=== PATIENT | male | born 1980 | race Caucasian/White ===

== ENCOUNTER 2019-08-28 23:53 | Observation (INO) ==
[2019-08-29 00:17] LABS: Basophils # 0.2 K/mm3 (0-0.2); Basophils % 1.3 % (0.1-2.0); Eosinophils # 0.5 K/mm3 (0.0-0.4); Eosinophils % 4.6 % (0.1-12.0); Hematocrit 49.3 % (42.0-52.0); Hemoglobin 16.7 g/dL (14.1-18.0); Lymphocytes # 3.3 K/mm3 (0.7-4.5); Lymphocytes % 29.3 % (10-50); Mean Corpuscular HGB Conc 33.8 g/dL (31.8-35.4); Mean Corpuscular Volume 92.9 fl (80-94); Mean Platelet Volume 7.3 fl (7.4-10.4); Monocytes # 0.7 K/mm3 (0.1-1.0); Monocytes % 6.6 % (1.7-9.3); Neutrophils # 6.6 K/mm3 (1.8-7.8); Neutrophils % 58.2 % (37.0-80.0); Platelet Count 261 K/mm3 (142-424); Red Blood Count 5.31 M/mm3 (4.60-6.20); Red Cell Distribution Width 12.6 % (11.5-17.5); White Blood Count 11.4 K/mm3 (4.8-10.8)
[2019-08-29 00:20] LABS: Appearance,Urine CLEAR (Clear); Bilirubin,Urine Negative (Negative); Blood, Urine Negative (Negative); Color,Urine YELLOW (Yellow); Glucose,Urine (UA) Negative (Negative); Ketones,Urine Negative (Negative); Leukocyte Esterase,Urine Negative (Negative); Microscopic, Urine URINE MICROSCOPIC (MICROSCOPIC); Protein,Urine Negative (Negative); Specific Gravity, Urine 1.025 (1.005-1.030); Urobilinogen,Urine 0.2 EU/dl (0.2)
--- NOTE | 2019-08-29 00:28 | Emergency Department Note ---
ED Disposition Clinical Impression: Obesity (BMI 30.0-34.9), Tobacco use Chest pain Qualifiers: Chest pain type: precordial pain Qualified Code(s): R07.2 - Precordial pain HTN (hypertension) Qualifiers: Hypertension type: essential hypertension Qualified Code(s): I10 - Essential (primary) hypertension GERD (gastroesophageal reflux disease) Qualifiers: Esophagitis presence: esophagitis presence not specified Qualified Code(s): K21.9 - Gastro-esophageal reflux disease without esophagitis Disposition: Admitted as Observation Condition on Discharge: Good Referrals: Provider,Referral, [Referring] - - Critical Care Critical Care Time: No Attestation: On 08/28/19, the high probability of a clinically significant, sudden or life threatening deterioration of the following system(s) required my full and direct attention, intervention and personal management. The time I documented below is in addition to time spent performing reported procedures but includes the fo llowing listed in this critical care notation. Medical Decision Making - Medical Records Medical records reviewed: Yes: I reviewed the patient's medical records. - [place] Inquiry Pt receiving controlled substance: No Vital Signs: 08/28/19 23:53 Temperature 99.2 F Temperature Source Oral Pulse Rate [Left Radial] 104 H Respiratory Rate 18 Blood Pressure [Left Arm] 179/110 H Blood Pressure Mean [Left Arm] 133 02 Sat by Pulse Oximetry 96 Oxygen Delivery Method Room Air - Lab Data Lab results reviewed: Yes: I reviewed the patient's lab results. Lab Results 08/29/19 00:00: WBC 11.4 H, RBC 5.31, Hgb 16.7, Hct 49.3, MCV 92.9, MCH 31.4 H, MCHC 33.8, RDW 12.6, Plt Count 261, MPV 7.3 L, Neut % (Auto) 58.2, Lymph % (Auto) 29.3, [place] % (Auto) 6.6, Eos % (Auto) 4.6, Baso % (Auto) 1.3, Neut # (Auto) 6.6, Lymph # (Auto) 3.3, [place] # (Auto) 0.7, Eos # (Auto) 0.5 H, Baso # (Auto) 0.2, ESR 2 08/29/19 00:00: Sodium 137, Potassium 3.9, Chloride 101, Carbon Dioxide 28, Anion Gap 11.9, BUN 17, Creatinine 1.26, Estimated Creat Clear 129, Estimated GFR 63, Est GFR ( Amer) 76, Glucose 86, Calcium 8.6, Total Bilirubin 0.2, AST 19, ALT 26, Alkaline Phosphatase 73, Troponin I < 0.02, C-Reactive Protein < 0.2, Total Protein 7.2, Albumin 3.7, Globulin 3.5 H, Albumin/Globulin Ratio 1.1 08/29/19 00:10: Urine Color Yellow, Urine Appearance Clear, Urine pH 6.0, Ur Specific [place] 1.025, Urine Protein Negative, Urine Glucose (UA) Negative, Urine Ketones Negative, Urine Blood Negative, Urine Nitrate Negative, Urine Bilirubin Negative, Urine Urobilinogen 0.2, Ur Leukocyte Esterase Negative, Urine WBC Occasional, Urine Bacteria Trace Result diagrams: 08/29/19 00:00 08/29/19 00:00 Orders (Tests/Meds): ED MEDICATIONS Discontinued Medications Generic Name Dose Route Start Last Admin Trade Name Freq PRN Reason Stop Dose Admin Aspirin 324 mg 08/29/19 00:02 08/29/19 00:04 Aspirin 81mg Chewable Tablet PO 08/29/19 00:03 324 mg ONCE ONE Administration Nitroglycerin 1 gm 08/29/19 00:51 08/29/19 00:55 Nitroglycerin 1 Inch Oint Udp TD 08/29/19 00:52 1 gm ONCE ONE Administration ORDERS Category Date Time Status Chest XR 2 view (NOT portable) [XR chest 2V] Stat Exams 08/29/19 00:17 Taken Troponin I Q3H Lab 08/29/19 03:15 Ordered Troponin I Q3H Lab 08/29/19 06:15 Ordered - Radiology Data #1 Image(s): Chest Image Reviewed: Yes I reviewed the patient's radiology image Preliminary Findings: Normal/NAD - ECG Data Tracing #1 Normal Sinus Rhythm: Yes Ischemic changes: non-specific ST-T wave changes - Physician Consults Physician Consulted: [email or web address] Reason -: Admission Chest Pain HPI - General Chief Complaint: Chest Pain Stated Complaint: chest pain Time Seen by Provider: 08/29/19 00:00 Mode of Arrival: Ambulatory Source of Information: Patient, Spouse, Medical Record Limitations: No Limitations Description of Symptoms (Recalled from ER Triage Doc. by RN): chest heaviness and pressure that started 2-3 days ago while he was at work. patient states that tonight the pain suddenly got worse - History of Present Illness HPI narrative: pt over the last 3 days with progressive chest pain and worse tonight at rest - pt reports pain as someone standing on chest - pt with multiple risk factors including fh and tob use and uncontrolled htn - no pcp MD complaint: chest pain indicative of cardiac Onset (ago): day(s) Duration: intermittent Activity at onset: during rest Pain location: left chest Severity: moderate Quality: heaviness Associated symptoms: nausea Risk Factors for CAD: Hypertension, Family Hx of CAD, Smoking Treatments prior to or on arrival for Cardiac Chest Pain: none - KEN Score for Non-Stemi Age of Patient: 40-49 years old Heart Rate: 90-109 bpm Systolic Blood Pressure: 160-199 mmHg Serum Creatinine: 1.20-1.59 mg/dl CHF [place] Class: I-No CHF Other Risk Factors: None Non-Stemi Risk Score: 60 - Related Data Home Medications Medication Instructions Recorded Confirmed No Known Home Medications 08/28/19 08/28/19 Allergies Allergy/AdvReac Type Severity Reaction Status Date / Time Penicillins Allergy Verified 08/28/19 23:59 [facility] History - Hepatitis A Screen Drug use history?: No High risk sexual behaviors?: No History of sexually transmitted infection?: No Currently employed?: No Childcare worker?: No Do you have indoor plumbing?: Yes Do you have electricity?: Yes Attestation statement:: This patient has been screened for Hepatitis A risk factors. I have reviewed the patient's past medical history: Yes - Social History Smoking Status: Current every day smoker Tobacco Type: cigarettes # Packs/Day (cigarettes): 2 Alcohol Intake: current Alcohol Intake Frequency:: holidays/special occasions only Occupational Status: employed ROS Obtained: Yes All systems reviewed & no additional complaints - Constitutional Constitutional: Denies fever(s) - Eyes Eyes: Denies change in vision - ENT Ears, Nose, Mouth, and Throat: Denies sore throat - Cardiovascular Cardiovascular: Reports as per HPI, Reports chest pain, Denies dyspnea - Respiratory Respiratory: No cough - Gastrointestinal Gastrointestingal: Reports: nausea, other (hx of gerd ). Denies: abdominal pain - Genitourinary Male Genitourinary: Denies hematuria - Musculoskeletal Musculoskeletal: Denies joint pain, Denies joint swelling - Integumentary/Breasts Skin/Breast: Denies rash - Neurologic Neurologic: Denies headache(s), Denies seizure-like activity Physical Exam - General General appearance: alert, obese - Head Head exam: normocephalic - Eye Eye exam: Present: PERRL, EOMI. Absent: scleral icterus - ENT ENT exam: Present: mucous membranes moist - Neck Neck exam: Present: trachea midline - Respiratory Respiratory exam: Present: normal lung sounds bilaterally. Absent: respiratory distress - Cardiovascular Cardiovascular exam: Present: regular rate, systolic murmur. Absent: rubs - Abdominal Exam Abdominal exam: Present: soft. Absent: tenderness - Extremities Exam Extremities exam: Present: full ROM - Neurological Exam Neurological exam: Present: alert, oriented X3, CN II-XII intact - Psychiatric Psychiatric exam: Present: normal affect - Skin Skin exam: Absent: rash
[2019-08-29 00:30] LABS: Bacteria,Urine Trace /lpf; WBC,Urine Occasional #/hpf (0-3)
[2019-08-29 00:36] LABS: Alanine Aminotransferase 26 U/L (12-78); Albumin Level 3.7 gm/dL (3.4-5.0); Albumin/Globulin Ratio 1.1 (1.1-1.8); Alkaline Phosphatase 73 U/L (46-116); Anion Gap 11.9 mEq/L (5-15); Aspartate Amino Transferase 19 U/L (15-37); Bilirubin,Total 0.2 mg/dL (0.2-1.0); Blood Urea Nitrogen 17 mg/dL (7-18); Calcium 8.6 mg/dL (8.5-10.1); Carbon Dioxide 28 mmol/L (21.0-32.0); Chloride 101 mmol/L (98-107); Globulin 3.5 gm/dl (1.3-3.2); Glucose 86 mg/dL (74-106); Sodium 137 mmol/L (136-145); Total Protein,Serum 7.2 gm/dL (6.4-8.2)
[2019-08-29 00:37] LABS: C-Reactive Protein < 0.2 mg/dL (0.0-0.9)
[2019-08-29 00:58] LABS: Erythrocyte Sedimentation Rate 2 mm/hr (0-15)
[2019-08-29 07:15] LABS: Basophils # 0.1 K/mm3 (0-0.2); Basophils % 1.3 % (0.1-2.0); Eosinophils # 0.5 K/mm3 (0.0-0.4); Hematocrit 47.2 % (42.0-52.0); Hemoglobin 15.3 g/dL (14.1-18.0); Lymphocytes % 32.3 % (10-50); Mean Corpuscular HGB Conc 32.4 g/dL (31.8-35.4); Mean Corpuscular Volume 95.8 fl (80-94); Mean Platelet Volume 7.5 fl (7.4-10.4); Monocytes # 0.7 K/mm3 (0.1-1.0); Monocytes % 7.6 % (1.7-9.3); Neutrophils # 4.9 K/mm3 (1.8-7.8); Neutrophils % 53.8 % (37.0-80.0); Platelet Count 236 K/mm3 (142-424); Red Blood Count 4.93 M/mm3 (4.60-6.20); Red Cell Distribution Width 12.8 % (11.5-17.5); White Blood Count 9.2 K/mm3 (4.8-10.8)
--- NOTE | 2019-08-29 07:40 | Pharmacy Consult Notes ---
[facility] Pharmacy VTE Monitoring - Patient Demographics Admission date: 08/29/19 Report Date: 08/29/19 Time: 07:40 Allergies/Adverse Reactions: Patient Allergies Penicillins Allergy (Verified 08/28/19 23:59) Height: 1.85 m Weight: 115.269 kg Patient Problems: Current Active Problems Chest pain (Acute) HTN (hypertension) (Acute) Obesity (BMI 30.0-34.9) (Acute) Tobacco use (Acute) GERD (gastroesophageal reflux disease) (Acute) - VTE Risk Labs: VTE Related Lab Results Hgb 15.3 g/dL (14.1-18.0) 08/29/19 06:13 Hct 47.2 % (42.0-52.0) 08/29/19 06:13 Plt Count 236 K/mm3 (142-424) 08/29/19 06:13 BUN 17 mg/dL (7-18) 08/29/19 00:00 Creatinine 1.26 mg/dL (0.70-1.30) 08/29/19 00:00 Estimated Creat Clear 129 mL/min (50-200) 08/29/19 00:00 Was VTE Risk Assessment Performed: Yes VTE Score: 6 VTE Risk Level: Moderate Risk Clinical Trial Participant: No - Prophylaxis VTE Prophylaxis Ordered?: Yes Types of VTE Prophylaxis: TEDS Knee High
[2019-08-29 08:06] LABS: Anion Gap 13.6 mEq/L (5-15); Calcium 8.1 mg/dL (8.5-10.1); Chol/HDL Ratio 3.4 (1-3.5)
--- NOTE | 2019-08-29 08:11 | Consult Report ---
History of Present Illness Consult date: 08/29/19 Requesting physician: Etienne Patino Consult reason: chest pain Chief complaint: chest pain Additional Medical History:: 1. History of palpitations for which he was previously on beta-kvng therapy, discontinued many years ago 2. Tobacco use, 1.5 packs/day for 7 years 3. Alcohol use, up to 15 beers per day 4. Chest pain with elevated blood pressure, 08/2019, normal troponins, EKG and echo History of present illness: 39-year-old white male with history of palpitations that had previously been treated with beta-kvng therapy was admitted for left-sided chest and abdominal discomfort that has been progressive over the last several days. He does relate some GI upset earlier this week including diarrhea and vomiting. He frequently takes [id number] Prilosec for GI upset. Patient has not seen a doctor in probably 10 years and discontinued his Toprol medication for his palpitations many years ago. He jokingly admits that he self medicates with beer and [id number] Prilosec when he feels bad. Patient's blood pressure on admission yesterday was 170/110 mmHg. He does relate a headache since the nitroglycerin paste was placed. Patient is a smoker but denies history of diabetes or hypertension. No history of early heart disease in his immediate family. Preliminary echocardiogram shows preserved ejection fraction with no significant valvular heart disease. 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 ankles) Amputation: No - *Social History Educational Level: Attended College Smoking Status: Current every day smoker Tobacco Type: cigarettes, smokeless tobacco # Packs/Day (cigarettes): 1 Alcohol Intake: current Alcohol Intake Frequency:: holidays/special occasions only *Occupational Status:: employed Housing: house Household Members: none *Travel in the last 8 weeks: Inside the [facility] Family Hx:: Cancer, Heart Attack Meds Home Medications Medication Instructions Recorded Confirmed Type No Known Home Medications 08/28/19 08/28/19 History Allergies Allergy/AdvReac Type Severity Reaction Status Date / Time Penicillins Allergy Verified 08/28/19 23:59 Review of Systems - Review of Systems Review of systems:: pertinent systems reviewed and negative unless documented below - *Cardiovascular Reports chest pain - *Respiratory Reports shortness of breath - *Gastrointestinal Reports abdominal pain, Reports loose stools, Reports nausea, Reports vomiting - *Genitourinary Denies blood in urine - *Musculoskeletal Denies joint pain, Denies back pain - *Neurologic Denies headache(s), Denies seizure-like activity Exam Vital signs and Labs for Last 24 Hours: Temp Pulse Resp BP Pulse Ox 97.8 F 80 18 129/82 95 08/29/19 03:58 08/29/19 04:00 08/29/19 03:58 08/29/19 03:58 08/29/19 03:58 Laboratory Results - last 24 hr 08/29/19 00:00: WBC 11.4 H, RBC 5.31, Hgb 16.7, Hct 49.3, MCV 92.9, MCH 31.4 H, MCHC 33.8, RDW 12.6, Plt Count 261, MPV 7.3 L, Neut % (Auto) 58.2, Lymph % (Auto) 29.3, [place] % (Auto) 6.6, Eos % (Auto) 4.6, Baso % (Auto) 1.3, Neut # (Au to) 6.6, Lymph # (Auto) 3.3, [place] # (Auto) 0.7, Eos # (Auto) 0.5 H, Baso # (Auto) 0.2, ESR 2 08/29/19 00:00: Sodium 137, Potassium 3.9, Chloride 101, Carbon Dioxide 28, Anion Gap 11.9, BUN 17, Creatinine 1.26, Estimated Creat Clear 129, Estimated GFR 63, Est GFR ( Amer) 76, Glucose 86, Calcium 8.6, Total Bilirubin 0.2, AST 19, ALT 26, Alkaline Phosphatase 73, Troponin I < 0.02, C-Reactive Protein < 0.2, Total Protein 7.2, Albumin 3.7, Globulin 3.5 H, Albumin/Globulin Ratio 1.1 08/29/19 00:10: Urine Color Yellow, Urine Appearance Clear, Urine pH 6.0, Ur Specific [place] 1.025, Urine Protein Negative, Urine Glucose (UA) Negative, Urine Ketones Negative, Urine Blood Negative, Urine Nitrate Negative, Urine Bilirubin Negative, Urine Urobilinogen 0.2, Ur Leukocyte Esterase Negative, Urine WBC Occasional, Urine Bacteria Trace 08/29/19 03:15: Troponin I < 0.02 08/29/19 06:13: Troponin I < 0.02 08/29/19 06:13: WBC 9.2, RBC 4.93, Hgb 15.3, Hct 47.2, MCV 95.8 H, MCH 31.1, MCHC 32.4, RDW 12.8, Plt Count 236, MPV 7.5, Neut % (Auto) 53.8, Lymph % (Auto) 32.3, [place] % (Auto) 7.6, Eos % (Auto) 5.0, Baso % (Auto) 1.3, Neut # (Auto) 4.9, Lymph # (Auto) 3.0, [place] # (Auto) 0.7, Eos # (Auto) 0.5 H, Baso # (Auto) 0.1 I & O for Last 24 hours: Intake & Output 08/26/19 08/27/19 08/28/19 08/29/19 11:59 11:59 11:59 11:59 Intake Total 128 / 128 Balance 128 / 128 Weight 254 lb 2 oz - *Routine HEENT Exam Head: Present: normocephalic Eye: Present: EOMI, PERRL ENT: Present: mucous membranes moist - *Routine Neck Exam Present: supple. Absent: JVD, carotid bruit - *Routine Respiratory Exam Present: CTA bilaterally. Absent: accessory muscle use, rales, rhonchi, wheezes - *Routine Cardiovascular Exam Present: RRR. Absent: murmur, gallop, rubs - *Routine Abdominal Exam Present: soft, tenderness. Absent: distended, guarding - *Routine Extremities Exam Absent: edema, calf tenderness - *Routine Neurological Exam Present: alert, oriented X3, moving all extremities Assessment and Plan (1) Chest pain Current visit: Yes Status: Acute Qualifiers: Chest pain type: precordial pain Qualified Code(s): R07.2 - Precordial pain Category: Medical Code(s): R07.9 - Chest pain, unspecified (2) GERD (gastroesophageal reflux disease) Current visit: Yes Status: Acute Qualifiers: Esophagitis presence: esophagitis presence not specified Qualified Code(s): K21.9 - Gastro-esophageal reflux disease without esophagitis Category: Medical Code(s): K21.9 - Gastro-esophageal reflux disease without esophagitis (3) HTN (hypertension) Current visit: Yes Status: Acute Qualifiers: Hypertension type: essential hypertension Qualified Code(s): I10 - Essential (primary) hypertension Category: Medical Code(s): I10 - Essential (primary) hypertension (4) Obesity (BMI 30.0-34.9) Current visit: Yes Status: Acute Category: Medical Code(s): E66.9 - Obesity, unspecified (5) Tobacco use Current visit: Yes Status: Acute Category: Medical Code(s): Z72.0 - Tobacco use (6) Alcohol use Current visit: Yes Status: Acute Category: Social Hx Code(s): Z72.89 - Other problems related to lifestyle - Assessment and plan all Dx Assessment and Plan for all problems:: 1. Atypical chest pain with normal troponins, normal EKG and normal echocardiogram. Patient with markedly elevated blood pressure on admission. Would recommend starting him back on his Toprol XL medication at 50 mg in the evening time with early follow-up next week for consideration of outpatient work-up. Patient can be discharged home from a cardiology standpoint. 2. GI upset, per Dr. Patino 3. Tobacco cessation recommended 4. History of alcohol use, curtailing or cessation recommended
--- NOTE | 2019-08-29 08:26 | H&P/Discharge Summary ---
<Sugar Morejon - Last Filed: 08/29/19 08:20> General - General Admission date:: 08/29/19 Discharge date: 08/29/19 *Admission Date: 08/29/19 *Chief complaint: chest pain, SOA *History of present illness: Mr. Milton is a 39-year-old male with a history of heart palpitations who has been previously treated with a beta-[id number] therapy. He states he stopped the medication years ago due to fatigue. Over the last several days, he has developed midsternal to left-sided chest and abdominal discomfort. He states the pain has radiated up into his neck. He has also had some GI upset earlier this week including diarrhea and vomiting. He states he takes Nexium [id number] for heartburn on a daily basis. He has not seen a doctor in over 10 years and "self medicates" with beer (approximately 10-15 a day) when he feels bad. His blood pressure was elevated on admission yesterday at 170/110. He states he has never had high blood pressure in the past, but he does have a family history of high blood pressure. He has had a headache since the nitroglycerin was placed and it was removed by cardiology today. He does smoke approximately a pack and a half a day but denies any history of diabetes. He was admitted to rule out an TN. His troponins have returned normal as was his EKG and preliminary echo. 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 ankles) Amputation: No - *Social History Educational Level: Attended College Smoking Status: Current every day smoker Tobacco Type: cigarettes, smokeless tobacco # Packs/Day (cigarettes): 1 Alcohol Intake: current Alcohol Intake Frequency:: 3 or more drinks per day *Occupational Status:: employed Housing: house Household Members: none *Travel in the last 8 weeks: Inside the [place] Family Hx:: Cancer, Coronary Artery Disease, Heart Attack Review of Systems - Constitutional Denies body ache(s), Denies chills, Denies weakness - Eyes Denies blurry vision, Denies double vision - ENT Denies nasal congestion, Denies sore throat - *Cardiovascular Reports chest pain, Reports shortness of breath, Denies rapid, pounding, or irregular heartbeat - *Respiratory Reports shortness of breath, Denies cough - *Gastrointestinal Reports abdominal pain (epigastric), Reports loose stools, Reports nausea, Denie s vomiting - *Genitourinary Denies difficulty urinating, Denies painful urination - *Musculoskeletal Denies joint pain, Denies body aches - *Neurologic Reports headache(s), Reports dizziness, Denies seizure-like activity, Denies weakness Exam Vital signs and Labs for Last 24 Hours: Temp Pulse Resp BP Pulse Ox 97.8 F 80 18 129/82 95 08/29/19 03:58 08/29/19 04:00 08/29/19 03:58 08/29/19 03:58 08/29/19 03:58 Laboratory Results - last 24 hr 08/29/19 00:00: WBC 11.4 H, RBC 5.31, Hgb 16.7, Hct 49.3, MCV 92.9, MCH 31.4 H, MCHC 33.8, RDW 12.6, Plt Count 261, MPV 7.3 L, Neut % (Auto) 58.2, Lymph % (Auto) 29.3, [place] % (Auto) 6.6, Eos % (Auto) 4.6, Baso % (Auto) 1.3, Neut # (Auto) 6.6, Lymph # (Auto) 3.3, [place] # (Auto) 0.7, Eos # (Auto) 0.5 H, Baso # (Auto) 0.2, ESR 2 08/29/19 00:00: Sodium 137, Potassium 3.9, Chloride 101, Carbon Dioxide 28, Anion Gap 11.9, BUN 17, Creatinine 1.26, Estimated Creat Clear 129, Estimated GFR 63, Est GFR ( Amer) 76, Glucose 86, Calcium 8.6, Total Bilirubin 0.2, AST 19, ALT 26, Alkaline Phosphatase 73, Troponin I < 0.02, C-Reactive Protein < 0.2, Total Protein 7.2, Albumin 3.7, Globulin 3.5 H, Albumin/Globulin Ratio 1.1 08/29/19 00:10: Urine Color Yellow, Urine Appearance Clear, Urine pH 6.0, Ur Specific [place] 1.025, Urine Protein Negative, Urine Glucose (UA) Negative, Urine Ketones Negative, Urine Blood Negative, Urine Nitrate Negative, Urine Bilirubin Negative, Urine Urobilinogen 0.2, Ur Leukocyte Esterase Negative, Urine WBC Occasional, Urine Bacteria Trace 08/29/19 03:15: Troponin I < 0.02 08/29/19 06:13: Troponin I < 0.02 08/29/19 06:13: WBC 9.2, RBC 4.93, Hgb 15.3, Hct 47.2, MCV 95.8 H, MCH 31.1, MCHC 32.4, RDW 12.8, Plt Count 236, MPV 7.5, Neut % (Auto) 53.8, Lymph % (Auto) 32.3, [place] % (Auto) 7.6, Eos % (Auto) 5.0, Baso % (Auto) 1.3, Neut # (Auto) 4.9, Lymph # (Auto) 3.0, [place] # (Auto) 0.7, Eos # (Auto) 0.5 H, Baso # (Auto) 0.1 08/29/19 06:13: Sodium 138, Potassium 3.6, Chloride 104, Carbon Dioxide 24, Anion Gap 13.6, BUN 15, Creatinine 1.20, Estimated Creat Clear 132, Estimated GFR 67, Est GFR ( Amer) 81, Glucose 86, Calcium 8.1 L, Magnesium 1.9, Triglycerides 118, Cholesterol 162, LDL Cholesterol 90, VLDL Cholesterol 24, HDL Cholesterol 48, Cholesterol/HDL Ratio 3.4 I & O for Last 24 hours: Intake & Output 08/26/19 08/27/19 08/28/19 08/29/19 11:59 11:59 11:59 11:59 Intake Total 128 / 128 Balance 128 / 128 Weight 254 lb 2 oz - Constitutional no acute distress - *Routine HEENT Exam Head: Present: normocephalic Eye: Present: EOMI, PERRL ENT: Present: mucous membranes moist - *Routine Neck Exam Present: supple. Absent: lymphadenopathy - *Routine Respiratory Exam Present: CTA bilaterally - *Routine Cardiovascular Exam Present: RRR - *Routine Abdominal Exam Present: soft, normoactive bowel sounds, tenderness (epigastric) - *Routine Extremities Exam Absent: cyanosis, clubbing, edema - *Routine Skin Exam Present: warm. Absent: rash - *Routine Neurological Exam Present: alert, oriented X3 Hospital Course Hospital Course: The patient's chest x-ray showed nothing acute. His troponins all returned normal as was his EKG and echocardiogram. He did have an elevated blood pressure on admission and cardiology recommended starting him back on his Toprol-XL 50 mg in the evening. They want to follow-up with him in a week for consideration of a stress test. They felt he could be discharged home from a cardiology standpoint. Tobacco cessation as well as curtailing his alcohol intake were both discussed with patient. He will be discharged home on the metoprolol as well as some pantoprazole for his GERD. Results Labs on day of discharge: Labs from last 24 hours 08/29/19 08/29/19 08/29/19 06:13 06:13 06:13 WBC 9.2 RBC 4.93 Hgb 15.3 Hct 47.2 MCV 95.8 H MCH 31.1 MCHC 32.4 RDW 12.8 Plt Count 236 MPV 7.5 Neut % (Auto) 53.8 Lymph % (Auto) 32.3 [place] % (Auto) 7.6 Eos % (Auto) 5.0 Baso % (Auto) 1.3 Neut # (Auto) 4.9 Lymph # (Auto) 3.0 [place] # (Auto) 0.7 Eos # (Auto) 0.5 H Baso # (Auto) 0.1 ESR Sodium 138 Potassium 3.6 Chloride 104 Carbon Dioxide 24 Anion Gap 13.6 BUN 15 Creatinine 1.20 Estimated Creat Clear 132 Estimated GFR 67 Est GFR ( Amer) 81 Glucose 86 Calcium 8.1 L Magnesium 1.9 Total Bilirubin AST ALT Alkaline Phosphatase Troponin I < 0.02 C-Reactive Protein Total Protein Albumin Globulin Albumin/Globulin Ratio Triglycerides 118 Cholesterol 162 LDL Cholesterol 90 VLDL Cholesterol 24 HDL Cholesterol 48 Cholesterol/HDL Ratio 3.4 Urine Color Urine Appearance Urine pH Ur Specific [place] Urine Protein Urine Glucose (UA) Urine Ketones Urine Blood Urine Nitrate Urine Bilirubin Urine Urobilinogen Ur Leukocyte Esterase Urine WBC Urine Bacteria 08/29/19 08/29/19 08/29/19 03:15 00:10 00:00 WBC RBC Hgb Hct MCV MCH MCHC RDW Plt Count MPV Neut % (Auto) Lymph % (Auto) [place] % (Auto) Eos % (Auto) Baso % (Auto) Neut # (Auto) Lymph # (Auto) [place] # (Auto) Eos # (Auto) Baso # (Auto) ESR Sodium 137 Potassium 3.9 Chloride 101 Carbon Dioxide 28 Anion Gap 11.9 BUN 17 Creatinine 1.26 Estimated Creat Clear 129 Estimated GFR 63 Est GFR ( Amer) 76 Glucose 86 Calcium 8.6 Magnesium Total Bilirubin 0.2 AST 19 ALT 26 Alkaline Phosphatase 73 Troponin I < 0.02 < 0.02 C-Reactive Protein < 0.2 Total Protein 7.2 Albumin 3.7 Globulin 3.5 H Albumin/Globulin Ratio 1.1 Triglycerides Cholesterol LDL Cholesterol VLDL Cholesterol HDL Cholesterol Cholesterol/HDL Ratio Urine Color Yellow Urine Appearance Clear Urine pH 6.0 Ur Specific [place] 1.025 Urine Protein Negative Urine Glucose (UA) Negative Urine Ketones Negative Urine Blood Negative Urine Nitrate Negative Urine Bilirubin Negative Urine Urobilinogen 0.2 Ur Leukocyte Esterase Negative Urine WBC Occasional Urine Bacteria Trace 08/29/19 00:00 WBC 11.4 H RBC 5.31 Hgb 16.7 Hct 49.3 MCV 92.9 MCH 31.4 H MCHC 33.8 RDW 12.6 Plt Count 261 MPV 7.3 L Neut % (Auto) 58.2 Lymph % (Auto) 29.3 [place] % (Auto) 6.6 Eos % (Auto) 4.6 Baso % (Auto) 1.3 Neut # (Auto) 6.6 Lymph # (Auto) 3.3 [place] # (Auto) 0.7 Eos # (Auto) 0.5 H Baso # (Auto) 0.2 ESR 2 Sodium Potassium Chloride Carbon Dioxide Anion Gap BUN Creatinine Estimated Creat Clear Estimated GFR Est GFR ( Amer) Glucose Calcium Magnesium Total Bilirubin AST ALT Alkaline Phosphatase Troponin I C-Reactive Protein Total Protein Albumin Globulin Albumin/Globulin Ratio Triglycerides Cholesterol LDL Cholesterol VLDL Cholesterol HDL Cholesterol Cholesterol/HDL Ratio Urine Color Urine Appearance Urine pH Ur Specific [place] Urine Protein Urine Glucose (UA) Urine Ketones Urine Blood Urine Nitrate Urine Bilirubin Urine Urobilinogen Ur Leukocyte Esterase Urine WBC Urine Bacteria - Impressions CXR - nothing acute DS: Diagnosis - Discharge Diagnosis (1) Chest pain Status: Acute (2) GERD (gastroesophageal reflux disease) Status: Acute (3) HTN (hypertension) Status: Acute (4) Obesity (BMI 30.0-34.9) Status: Acute (5) Tobacco use Status: Acute (6) Alcohol use Status: Acute Discharge Plan - Patient Discharge Instructions ACTIVITY: Continue current activity DIET: low salt diet Patient Instructions: Essential Hypertension, DI for Chest Pain - Follow up Plan Follow up with: Etienne Patino MD [Primary Care Provider] - 09/12/19 11:00 am Jona Carrillo PA [Physician Urogynecology Physician] - 09/08/19 1:30 pm Disposition: Home, Self-Retirement Medications: Home Medications Medication Instructions Recorded Confirmed Type Ibuprofen [Ibuprofen 200MG Capsule] 200 mg PO NEEDED PRN 08/29/19 08/29/19 History Metoprolol Succinate [Toprol XL 50 mg PO HS #30 tab 08/29/19 Rx 50mg Tablet] Pantoprazole Sodium [Protonix 40mg 40 mg PO HS 30 Days #30 tab 08/29/19 Rx tablet] Prescriptions/Medication Reconciliation: New Pantoprazole Sodium [Protonix 40mg tablet] 40 mg PO HS 30 Days #30 tab Metoprolol Succinate [Toprol XL 50mg Tablet] 50 mg PO HS #30 tab Continued Ibuprofen [Ibuprofen 200MG Capsule] 200 mg PO NEEDED PRN PRN Reason: pain Discontinued Esomeprazole Magnesium [Nexium] 20 mg PO DAILY - Problem Reconciliation Problems Reviewed?: Yes <Etienne Patino - Last Filed: 08/31/19 08:25> General - General Admission date:: 08/29/19 Exam Vital signs and Labs for Last 24 Hours: Temp Pulse Resp BP Pulse Ox 97.9 F 98 H 20 146/93 H 95 08/29/19 08:00 08/29/19 08:00 08/29/19 08:00 08/29/19 08:00 08/29/19 08:00 I & O for Last 24 hours: Intake & Output 08/28/19 08/29/19 08/30/19 08/31/19 11:59 11:59 11:59 11:59 Intake Total 128 / 128 Balance 128 / 128 Weight 254 lb 2 oz DS: Diagnosis - Discharge Diagnosis (1) Chest pain Status: Acute (2) GERD (gastroesophageal reflux disease) Status: Acute (3) HTN (hypertension) Status: Acute (4) Obesity (BMI 30.0-34.9) Status: Acute (5) Tobacco use Status: Acute (6) Alcohol use Status: Acute Discharge Plan - Problem Reconciliation Problems Reviewed?: Yes - Additional Information Additional Information: Patient seen and examined. Concur with plan for discharge as outlined above.
--- NOTE | 2019-08-29 14:10 | Cardiology Report ---
APPROVED REPORT EXAM: Comprehensive 2D, Doppler, and color-flow Echocardiogram Molded Goods Inspector Trimmer: Emma Pace RVT Ht: 6 ft 1 in Wt: 260lbs BSA: 2.41 BP: 179/110 mmHg Indications: Chest Pain, Hypertension,Smoker 2D Dimensions LVOT 2.24 cm (M/F) 1.5-2.5 M-Mode Dimensions RVDd 1.86 cm (0.9-2.6)LVDd 4.65 cm (3.5-5.7) LVDs 2.75 cm (3.5-5.7)IVSd 1.36 cm (0.6-1.1) PWd 1.43 cm (0.6-1.1)EF (Teich) 71.60% FS 40.90% EDV (Teich) 99.80 mL ESV (Teich) 28.30 mL LV Diastology E/A Ratio 0.71 Mitral Valve MV A Velocity 63.00 (40-130 cm/s) Left Ventricle Left atrium is mildly enlarged, left ventricle is normal size, mild concentric left ventricular hypertrophy, visually estimated ejection fraction 55% with no regional wall motion abnormality, grade 1 diastolic dysfunction seen without tissue Doppler evidence of raise left atrial pressure. Right Ventricle Right atrium right ventricular normal size and contractility. Aortic Valve Aortic valve is minimally thickened and fibrosed. There is no aortic stenosis aortic insufficiency. Mitral Valve Mitral valve is grossly normal, there is mild mitral regurgitation. Tricuspid Valve Tricuspid valve is grossly normal, there is mild tricuspid regurgitation, Pulmonic Valve Pulmonic valve is poorly visualized. Great Vessels Aortic root is normal size. Pericardium No significant pericardial effusion noted. Conclusion 1. Normal left ventricular size, mild concentric left ventricular hypertrophy, visually estimated ejection fraction 55% with no regional wall motion abnormality, grade 1 diastolic dysfunction seen without tissue Doppler evidence of raise left atrial pressure. 2. Mild mitral and tricuspid regurgitation. 3. No significant pericardial effusion noted. Electronically signed by : Raffi Veliz, 08/29/2019 14:10:04
--- NOTE | 2019-08-30 14:21 | Electrocardiograph Report ---
APPROVED REPORT Exam: Resting ECG HR:100 bpm ECG Measurements Heart Rate 100 AXES HI 146 P 49 QRSd 84 QRS 30 QT 366 T40 QTc 472 <Conclusion> Normal sinus rhythm Normal ECG Electronically signed by : Bacilio Pat, 08/30/2019 14:20:28
== END 2019-08-29 10:38 | disposition home or self-care (01) ==
LOC: 2ND 23:53 → ER 23:53 → 2ND 08-29 01:41
PROVIDERS: ADMIT Family Medicine; ATTEND Family Medicine
DX: Z86.14 Personal history of Methicillin resistant Staphylococcus aureus infection; E66.9 Obesity, unspecified; F10.10 Alcohol abuse, uncomplicated; Z68.33 Body mass index [BMI] 33.0-33.9, adult; Z82.49 Family history of ischemic heart disease and other diseases of the circulatory system; I10 Essential (primary) hypertension; Z88.0 Allergy status to penicillin; Z72.0 Tobacco use; R00.2 Palpitations; Z72.89 Other problems related to lifestyle; R07.2 Precordial pain; R06.02 Shortness of breath; K21.9 Gastro-esophageal reflux disease without esophagitis
CPT/HCPCS: 36415; 71020; 71046; 80048; 80053; 80061; 81001; 83735; 84484; 85025; 85651; 86140; 93005; 93306; 99284; G0378

== ENCOUNTER → 2019-10-01 09:15 | Outpatient (CLI) | payer OTHER, SELFPAY ==
--- NOTE | 2019-10-01 09:17 | CA_ITS ---
APPROVED REPORT Exam: Exercise Treadmill Technologist: Corin Sommers, Ht: 6 ft 1 in Wt: 254 lbs BSA: 2.38 m2 HR: 98 bpm BP: 137/88 mmHg Medical History Medical History: HTN, Smoking Medications: Metoprolol,,,,, Pantoprazole,,,,, Allergies: No known drug allergies Cardiac Risk Factors: HTN, Smoking Stress Test Details Test: Fabio HR Resting HR: 100 bpm Max Heart Rate (APMHR): 179 bpm Max HR Achieved: 158 bpm Target HR (85% APMHR): 152 bpm % of APMHR: 88 Recovery HR: 147 bpm BP Resting BP: 137.0/88.0 mmHg Max BP: 188.0/119.0 mmHg Recovery BP: 182.0/100.0 mmHg ECG Clinical Exercise duration: 07:58 min Highest Stage Achieved: Exercise capacity: 10.1 METs Stress ECG Conclusion EXERCISED 7:58 ON FABIO PROTOCOL STOPPING DUE TO LEG CRAMP. MAX HEART RATE 158 BPM WHICH IS 88% OF PM FOR AGE. MAX BP 188/119. METS = 10.1. TEST STOPPED DUE TO LEG CRAMPS. NO CHEST PAIN. OCCASIONAL PVC. T WAVE INVERSION WITH NS ST CHANGES INFERIORLY. PROBABLY WITHIN NORMAL GXT. GXT ONLY(NO IMAGING). Test Summary RECOVERY 07:00 0.0 0.0 112 . 138/ 98 . . REST . . . . . . . Sitting REST 07:24 0.0 0.0 100 . 137/ 88 . . Stage 1 01:00 10.0 1.7 118 . . . . Stage 1 02:00 10.0 1.7 124 . . . . Stage 1 03:00 10.0 1.7 126 . . . . Stage 2 01:00 12.0 2.5 135 . . . . Stage 2 02:00 12.0 2.5 140 . . . . Stage 2 03:00 12.0 2.5 146 . 174/104 . . Stage 3 01:00 14.0 3.4 155 . . . . Stage 3 01:58 14.0 3.4 156 . . . Stop exercise at 07:58 RECOVERY 01:00 0.0 0.0 142 . . . . RECOVERY 02:00 0.0 0.0 120 . 182/100 . . RECOVERY 03:00 0.0 0.0 124 . 182/100 . . RECOVERY 04:00 0.0 0.0 119 . 188/119 . . RECOVERY 05:00 0.0 0.0 113 . 164/ 97 . . RECOVERY 06:00 0.0 0.0 116 . 164/ 97 . . RECOVERY 07:00 0.0 0.0 112 . 138/ 98 . . RECOVERY 08:00 0.0 0.0 112 . 138/ 98 . . RECOVERY 08:11 0.0 0.0 112 . 138/ 98 . . Electronically signed by : Raffi Veliz, 10/02/2019 15:43:46
== END ==
PROVIDERS: PCP Family Medicine; Visit Provider Physician Assistant
DX: R07.9 Chest pain, unspecified (principal); I10 Essential (primary) hypertension
CPT/HCPCS: 93017

== ENCOUNTER 2019-12-01 21:45 | Emergency (ER) | payer OTHER, SELFPAY ==
[2019-12-01 21:45] VITALS: BP 158/100; PULSE 103; RESP 16; TEMP 36.8; O2SAT 99; BMI 32.7
--- NOTE | 2019-12-01 21:58 | CT_ITS ---
PROCEDURE: CT HEAD/BRAIN WO CON CLINICAL INDICATION: fell off horse Posttraumatic pain, blunt trauma with injury and pain, COMPARISON: No exams were available for comparison TECHNIQUE: Axial images obtained. All CT scans at the facility use one or more dose reduction, viz: automated exposure control, ma/kV adjustment per patient size (including targeted exams where dose is matched to indication, i.e. head), or iterative reconstruction technique. FINDINGS: No midline shift, mass effect, intracranial hemorrhage, hydrocephalus, or extra-axial fluid collection is evident. The calvarium has an unremarkable appearance. No mastoid effusion. There is mild mucosal thickening of maxillary sinus laterally on right IMPRESSION: No acute intracranial finding Dictated by: Sherif Reynolds MD 12/02/2019 09:36 Electronically signed by Sherif Reynolds MD in [facility] 12/02/2019 09:36
--- NOTE | 2019-12-01 21:58 | XR_ITS ---
PROCEDURE: XR CHEST 2V CLINICAL HISTORY: fell off horse Posttraumatic pain, right rib and chest the, trauma protocol/alert COMPARISON: XR CHEST 2V from 08/29/2019 CT ANGIO CHEST from 12/01/2019 FINDINGS: The cardiomediastinal silhouette and pulmonary vascularity are within normal limits. The lungs are clear without infiltrates, suspicious nodules, or pleural effusions. There is an old left 3rd rib fracture IMPRESSION: No acute findings. Dictated by: Sherif Reynolds MD 12/02/2019 08:32 Electronically signed by Sherif Reynolds MD in [facility] 12/02/2019 08:32
--- NOTE | 2019-12-01 21:58 | XR_ITS ---
PROCEDURE: XR PELVIS 1-2V CLINICAL INDICATION: fell off horse Blunt trauma with injury and pain, trauma protocol/trauma alert COMPARISON: No exams were available for comparison TECHNIQUE: XR Pelvis AP View FINDINGS: No fracture or dislocation is evident. No significant degenerative change. Contrast is present in the urinary bladder and distal ureters without evidence of extravasation IMPRESSION: No acute findings. Dictated by: Sherif Reynolds MD 12/02/2019 08:31 Electronically signed by Sherif Reynolds MD in [facility] 12/02/2019 08:31
--- NOTE | 2019-12-01 21:58 | CT_ITS ---
PROCEDURE: CT CERVICAL SPINE WO CON CLINICAL INDICATION: fell off horse Posttraumatic pain, neck injury with pain, blunt trauma with injury and pain the COMPARISON: No exams were available for comparison TECHNIQUE: Axial images obtained with sagittal and coronal reformats. All CT scans at the facility use one or more dose reduction, viz: automated exposure control, ma/kV adjustment per patient size (including targeted exams where dose is matched to indication, i.e. head), or iterative reconstruction technique. Axial spiral CT scanning performed of the cervical spine beginning at the base of the skull and continuing to the upper T-spine. 3-D multiplanar reconstruction with 3-D manipulation of volumetric data set in image rendering was completed by the radiologist and/or technologist with the supervision of the radiologist on independent workstation. FINDINGS: No fracture nor subluxation is evident. Normal prevertebral soft tissues. Facets, neural foramen and vertebral bodies intact and unremarkable. Normal C1/C2 relationships. Apices of lungs are clear with no acute findings. IMPRESSION: Cervical spine intact with no fracture nor subluxation. Dictated by: Sherif Reynolds MD 12/02/2019 09:38 Electronically signed by Sherif Reynolds MD in [facility] 12/02/2019 09:38
--- NOTE | 2019-12-01 21:58 | CT_ITS ---
PROCEDURE: CT ANGIO CHEST CLINCIAL INDICATION: fell off horse horse landed on him rt ribs and ruq pain Blunt trauma with injury and pain, right-sided rib pain following injury, right-sided chest pain COMPARISON: No exams were available for comparison TECHNIQUE: IV Contrast: 70ML OPTIRAY 350 Axial images obtained with sagittal and coronal reformats. All CT scans at the facility use one or more dose reduction, viz: automated exposure control, ma/kV adjustment per patient size (including targeted exams where dose is matched to indication, i.e. head), or iterative reconstruction technique. FINDINGS: HEART AND MEDIASTINAL STRUCTURES: Unremarkable. LUNGS AND PLEURAL SPACES: No evidence of pneumothorax. Atelectatic changes are present in the right lung base. There is pleural thickening of the level multiple right-sided rib fractures described below. There is trace right effusion. BONY STRUCTURES: Minimally displaced fracture involves the right 5th and 6th rib posteriorly with underlying pleural thickening nondisplaced fractures involve the anterior aspect of the right for, 5th, 6, 7th ribs. UPPER ABDOMEN: See abdomen report ADDITIONAL FINDINGS: No other significant abnormalities. IMPRESSION: Multiple right-sided rib fractures with pleural thickening and trace right effusion Dictated by: Sherif Reynolds MD 12/02/2019 09:58 Electronically signed by Sherif Reynolds MD in [facility] 12/02/2019 09:58
[2019-12-01 22:04] VITALS: BMI 32.7
--- NOTE | 2019-12-01 22:05 | CT_ITS ---
PROCEDURE: CT ABDOMEN PELVIS W CON CLINICAL INDICATION: fell off horse Blunt trauma with pain. Abdominal pain, injury with pain, right-sided rib fractures with right-sided pain COMPARISON: No exams were available for comparison TECHNIQUE: IV Contrast: 75ML OPTIRAY 350 Oral Contrast none Axial images obtained with sagittal and coronal reformats. All CT scans at the facility use one or more dose reduction, viz: automated exposure control, ma/kV adjustment per patient size (including targeted exams where dose is matched to indication, i.e. head), or iterative reconstruction technique. FINDINGS: LOWER THORAX: See chest CT report ABDOMEN & PELVIS: The liver, spleen, pancreas, adrenal glands, and kidneys show no acute finding. No intestinal obstruction or free air. No evidence of appendicitis or diverticulitis. No pelvic mass, abnormal fluid collection, or focal inflammatory change of the pelvis. No acute bony anomalies. The most lower portion of the pelvis is not included on the exam. If there is pain in this area then would suggest return for additional images. Right-sided rib fractures are present as described in the chest CT report and there is trace right effusion with atelectatic changes in the right lung base. IMPRESSION: 1. No acute abdominal or pelvic findings. 2. Trace right effusion with atelectatic changes and right-sided rib fractures as described in the chest CT report Dictated by: Sherif Reynolds MD 12/02/2019 10:13 Electronically signed by Sherif Reynolds MD in [facility] 12/02/2019 10:13
--- NOTE | 2019-12-01 22:16 | HMH.EDFALL ---
ED Disposition Clinical Impression: Ribs, multiple fractures Qualifiers: Encounter type: initial encounter Fracture type: closed Laterality: right Qualified Code(s): S22.41XA - Multiple fractures of ribs, right side, initial encounter for closed fracture Disposition: Home, Self-Care Condition on Discharge: Good Instructions: DI for Rib Fracture Additional Instructions: call pcp for follow up this week Prescriptions: Ketorolac Tromethamine [Toradol 10mg tablet] 10 mg PO Q6H 5 Days #20 tab Transmission Status: Pending to [id number] Referrals: Etienne Patino MD [Primary Care Provider] - - Critical Care Critical Care Time: No Attestation: On 12/01/19, the high probability of a clinically significant, sudden or life threatening deterioration of the following system(s) required my full and direct attention, intervention and personal management. The time I documented below is in addition to time spent performing reported procedures but includes the following listed in this critical care notation. Medical Decision Making - Medical Records Medical records reviewed: Yes: I reviewed the patient's medical records. - Dimas Inquiry Pt receiving controlled substance: No Vital Signs: 12/01/19 21:45 12/01/19 23:38 12/01/19 23:41 Temperature 98.2 F Temperature Source Oral Pulse Rate [Left Radial] 103 H 86 81 Respiratory Rate 16 18 16 Blood Pressure [Right Arm] 158/100 H 123/86 123/86 Blood Pressure Mean [Right Arm] 119 98 98 Blood Pressure Source [Right Arm] Automatic Cuff Automatic Cuff Blood Pressure Position [Right Arm] Sitting Sitting 02 Sat by Pulse Oximetry 99 99 99 Oxygen Delivery Method Room Air Room Air Room Air 12/02/19 00:00 Temperature Temperature Source Pulse Rate [Left Radial] 77 Respiratory Rate 18 Blood Pressure [Right Arm] 115/88 Blood Pressure Mean [Right Arm] 97 Blood Pressure Source [Right Arm] Blood Pressure Position [Right Arm] 02 Sat by Pulse Oximetry 98 Oxygen Delivery Method Room Air - Lab Data Lab results reviewed: Yes: I reviewed the patient's lab results. Lab Results 12/01/19 22:07: WBC 12.1 H, RBC 5.11, Hgb 16.3, Hct 49.1, MCV 96.0 H, MCH 31.9 H, MCHC 33.2, RDW 12.5, Plt Count 307, MPV 7.8, Neut % (Auto) 59.9, Lymph % (Auto) 25.4, Jack % (Auto) 8.4, Eos % (Auto) 4.9, Baso % (Auto) 1.4, Neut # (Auto) 7.2, Lymph # (Auto) 3.1, Jack # (Auto) 1.0, Eos # (Auto) 0.6 H, Baso # (Auto) 0.2 12/01/19 22:07: Sodium 139, Potassium 3.8, Chloride 106, Carbon Dioxide 27, Anion Gap 9.8, BUN 13, Creatinine 1.00, Estimated Creat Clear 159, Estimated GFR 82, Est GFR ( Amer) 100, Glucose 87, Calcium 9.3, Total Bilirubin 0.3, AST 35, ALT 26, Alkaline Phosphatase 60, Total Protein 7.5, Albumin 4.3, Globulin 3.2, Albumin/Globulin Ratio 1.3 12/01/19 22:07: Plasma/Serum Alcohol < 10 Result diagrams: 12/01/19 22:07 12/01/19 22:07 Orders (Tests/Meds): ED MEDICATIONS Generic Name Dose Route Start Last Admin Trade Name Freq PRN Reason Stop Dose Admin Sodium Chloride 1,000 mls @ 999 mls/hr 12/01/19 22:45 12/01/19 22:43 Sod Chlor 0.9% 1000ml Bag IV 12/01/19 23:45 999 mls/hr .Q1H1M ZEYNEP Administration Discontinued Medications Generic Name Dose Route Start Last Admin Trade Name Freq PRN Reason Stop Dose Admin Iohexol 100 ml 12/01/19 23:10 12/01/19 23:12 Rad-Omnipaque 350 100ml Bottle IV 12/01/19 23:11 100 ml ONCE ONE Administration Ketorolac Tromethamine 30 mg 12/01/19 22:38 12/01/19 22:43 Toradol 30mg/Ml Vial IV 12/01/19 22:39 30 mg ONCE ONE Administration Sodium Chloride 40 ml 12/01/19 23:10 12/01/19 23:12 Rad-Ns 50ml Vial IV 12/01/19 23:11 40 ml ONCE ONE Administration Sodium Chloride 10 ml 12/01/19 23:10 12/01/19 23:12 Rad-Saline Flush 10ml Syringe IV 12/01/19 23:11 10 ml ONCE ONE Administration ORDERS Category Date Time Status CT abdomen pelvis w con Stat Cat Scan 12/01/19 22:05 Take
[2019-12-01 22:20] LABS: Chloride 106 mmol/L (98-107); Potassium 3.8 mmoL/L (3.5-5.1); Sodium 139 mmol/L (136-145)
[2019-12-01 22:22] LABS: Alanine Aminotransferase 26 U/L (12-78); Aspartate Amino Transferase 35 U/L (17-59); Basophils # 0.2 K/mm3 (0-0.2); Basophils % 1.4 % (0.1-2.0); Blood Urea Nitrogen 13 mg/dl (9-20); Creatinine Clearance Estimated 159 mL/min (50-200); Eosinophils # 0.6 K/mm3 (0.0-0.4); Eosinophils % 4.9 % (0.1-12.0); Estimated Glomerular Filt Rate 82 ml/min (>60); GFR (African American) 100 ML/MIN (>60); Hematocrit 49.1 % (42.0-52.0); Hemoglobin 16.3 g/dL (14.1-18.0); Lymphocytes # 3.1 K/mm3 (0.7-4.5); Lymphocytes % 25.4 % (10-50); Mean Corpuscular HGB Conc 33.2 g/dL (31.8-35.4); Mean Corpuscular Hemoglobin 31.9 pg (27.0-31.2); Mean Platelet Volume 7.8 fl (7.4-10.4); Monocytes % 8.4 % (1.7-9.3); Neutrophils # 7.2 K/mm3 (1.8-7.8); Neutrophils % 59.9 % (37.0-80.0); Platelet Count 307 K/mm3 (142-424); Red Blood Count 5.11 M/mm3 (4.60-6.20); Red Cell Distribution Width 12.5 % (11.5-17.5); White Blood Count 12.1 K/mm3 (4.8-10.8)
[2019-12-01 22:23] LABS: Albumin Level 4.3 g/dl (3.5-5.0); Albumin/Globulin Ratio 1.3 (1.1-1.8); Alkaline Phosphatase 60 U/L (38-126); Anion Gap 9.8 mEq/L (5-15); Bilirubin,Total 0.3 mg/dl (0.2-1.3); Calcium 9.3 mg/dl (8.4-10.2); Carbon Dioxide 27 mmol/L (22.0-30.0); Globulin 3.2 g/dL (1.3-3.2); Glucose 87 mg/dl (74-100); Total Protein,Serum 7.5 g/dl (6.3-8.2)
[2019-12-01 22:24] LABS: Ethyl Alcohol < 10 mg/dl (0-10)
[2019-12-01 23:38] VITALS: BP 123/86; PULSE 86; RESP 18; O2SAT 99
[2019-12-01 23:41] VITALS: BP 123/86; PULSE 81; RESP 16; O2SAT 99
[2019-12-02] VITALS: BP 115/88; PULSE 77; RESP 18; O2SAT 98
[2019-12-02 00:25] VITALS: BP 115/84; PULSE 91; RESP 18; O2SAT 98
[2019-12-02 00:55] VITALS: BP 115/77; PULSE 92; RESP 17; TEMP 36.8; O2SAT 98
== END 2019-12-02 01:00 | disposition home or self-care (01) ==
PROVIDERS: Emergency Provider Emergency Medicine; PCP Family Medicine
DX: S22.41XA Multiple fractures of ribs, right side, initial encounter for closed fracture (principal); V80.010A Animal-rider injured by fall from or being thrown from horse in noncollision accident, initial encounter; Y93.52 Activity, horseback riding; Y92.73 Farm field as the place of occurrence of the external cause; F10.10 Alcohol abuse, uncomplicated; K21.9 Gastro-esophageal reflux disease without esophagitis; Z88.0 Allergy status to penicillin; I10 Essential (primary) hypertension; F17.210 Nicotine dependence, cigarettes, uncomplicated
CPT/HCPCS: 70450; 71046; 71275; 72125; 72170; 74177; 80053; 85025; 96365; 96375; 99284; Q9967

== ENCOUNTER → 2021-06-20 15:43 | Outpatient (CLI) | payer OTHER, SELFPAY | PROVIDERS: PCP Family Medicine; Visit Provider Nurse Practitioner | DX: Z20.822 Contact with and (suspected) exposure to COVID-19 (principal); U07.1 COVID-19 | CPT/HCPCS: C9803; U0003; U0005 ==

== ENCOUNTER → 2021-09-06 07:38 | Outpatient (CLI) | payer OTHER, SELFPAY ==
--- NOTE | 2021-09-06 07:44 | CA_ITS ---
FINAL REPORT TECHNIQUE: Color Doppler, duplex Doppler and coon scale sonography of the bilateral neck arterial vasculature was performed. Velocities were measured in the carotid arteries. Stenosis evaluation based on the validated velocity criteria. CLINICAL HISTORY: .MEMORY LOSS,HAND NUMBNESS,HTN,SMOKER FINDINGS: The peak systolic velocity of the right common carotid artery is 95 cm/s. The peak systolic velocity of the right internal carotid artery is 80 cm/s and end diastolic velocity 29 cm/s. A small amount of plaque is present. The right external carotid artery is patent. The right vertebral artery is patent with antegrade flow. The peak systolic velocity of the left common carotid artery is 104 cm/s. The peak systolic velocity of the left internal carotid artery is 90 cm/s and end diastolic velocity 29 cm/s. A small amount of plaque is present. The left external carotid artery is patent.The left vertebral artery is patent with antegrade flow. IMPRESSION: Less than 50% bilateral carotid stenoses. Bilateral patent vertebral arteries with antegrade flow. If indicated, CTA or MRA could further evaluate. Reviewed, Interpreted and Dictated by Oral Zarate III, MD Transcribed by Nina Cueto Authenticated by Oral Zarate III, MD on 09/06/2021 11:29:45 AM [facility]
--- NOTE | 2021-09-06 07:44 | CA_ITS ---
APPROVED REPORT EXAM: Comprehensive 2D, Doppler, and color-flow Echocardiogram Obstetrical Nurse: Jamia Babb CRT Ht: 6 ft 1 in Wt: 264lbs BSA: 2.42 BP: 132/90 mmHg Indications: SOA, HTN, Hx-COVID 05/2021, Smoker, Obesity 2D Dimensions LVOT 2.77 cm (M/F) 1.5-2.5 LA Volume 52.60 mL LA Volume Index 21.70 mL/m2 (M/F) 16-34 M-Mode Dimensions RVDd 3.39 cm (0.9-2.6) LA Diam 4.17 cm (1.9-4.0) LVDd 4.87 cm (3.5-5.7) Ao Diam 4.60 cm (2.0-3.7) LVDs 3.50 cm (3.5-5.7) IVSd 2.13 cm (0.6-1.1) PWd 0.57 cm (0.6-1.1) EF (Teich) 54.20% FS 28.10% EDV (Teich) 111.20 mL TAPSE 2.02 (<1.7) ESV (Teich) 50.90 mL LV Diastology E Decel Time 210.00 (160-240 msec) E/A Ratio 0.93 MED E' 5.70 (< 7 cm/sec) MED A' 11.90 cm/s E'/MED E' Ratio 8.91 (>14) LAT E' 8.40 (<10 cm/sec) LAT A' 11.40 cm/s E/LAT E' Ratio 6.05 (>14) Aortic Valve AO Peak GR. 5.00 mmHg Mitral Valve MV A Velocity 55.00 (40-130 cm/s) E/A Ratio 0.93 MV Decel. Time 210.00 (160-240 ms) Pulmonary Valve PV Peak Velocity 98.00 (50-150 cm/s) Tricuspid Valve TR P. Velocity 243.00 cm/s RAP Estimate 10.00 mmHg RVSP 33.60 mmHg Left Ventricle Left atrium is mildly enlarged, left ventricle is normal size, mild concentric left ventricular hypertrophy, visually estimated ejection fraction 55% with no regional wall motion abnormality, endocardial surfaces are poorly visualized. Grade 1 diastolic dysfunction seen without tissue Doppler evidence of raise left atrial pressure. Right Ventricle Right atrium and right ventricle are normal size and contractility. Aortic Valve Aortic valve is grossly normal, there is no aortic stenosis, or aortic insufficiency. Mitral Valve Mitral valve grossly normal, there is trace mitral regurgitation. Tricuspid Valve Tricuspid valve grossly normal, there is trace tricuspid regurgitation, tricuspid regurgitation jet velocity is inadequate for calculation of the right ventricular systolic pressure. Pulmonic Valve Pulmonic valve is poorly visualized. Great Vessels Aortic root is normal size. Inferior vena cava is normal size with normal inspiratory collapse. Pericardium No significant pericardial effusion noted. Conclusion 1. Mildly in the left atrium, normal left ventricular size, mild concentric left ventricular hypertrophy, visually estimated ejection fraction 55% with no regional wall motion abnormality, endocardial surfaces are poorly visualized, grade 1 diastolic dysfunction seen without tissue Doppler evidence of raise left atrial pressure. 2. Trace mitral and tricuspid regurgitation. 3. No significant pericardial effusion. 4. Inferior vena cava is normal size with normal inspiratory collapse. Electronically signed by : Raffi Veliz MD 09/06/2021 19:35:02
--- NOTE | 2021-09-06 07:47 | CT_ITS ---
FINAL REPORT CLINICAL HISTORY: memory loss since having covid, hand numbness, cough FINDINGS: Axial images of the head were obtained without and with contrast. Coronal reformatted images were also obtained. This study was performed with techniques to keep radiation doses as low as reasonably achievable (ALARA). Individualized dose reduction techniques using automated exposure control or adjustment of mA and/or kV according to the patient's size were employed. There is no evidence of intracranial hemorrhage or mass. The ventricles are normal in size. There is no evidence of acute infarct. There is no evidence of shift of the midline structures. No skull abnormality is seen on the bone window images. No abnormal contrast enhancement is seen. There is mild mucosal thickening in the right maxillary sinus. IMPRESSION: No acute intracranial abnormality identified. Reviewed, Interpreted and Dictated by Oral Zarate III, MD Transcribed by Noble Chapin Authenticated by Oral Zarate III, MD on 09/06/2021 09:25:15 AM [facility]
== END ==
PROVIDERS: PCP Family Medicine; Visit Provider Urology
DX: R06.00 Dyspnea, unspecified (principal); R09.89 Other specified symptoms and signs involving the circulatory and respiratory systems; R41.3 Other amnesia; I10 Essential (primary) hypertension; I51.89 Other ill-defined heart diseases; K21.9 Gastro-esophageal reflux disease without esophagitis; R20.0 Anesthesia of skin; R20.2 Paresthesia of skin; E66.9 Obesity, unspecified; Z72.0 Tobacco use
CPT/HCPCS: 70470; 93306; 93880; Q9967

== ENCOUNTER → 2022-03-22 10:24 | Outpatient (CLI) | payer OTHER, SELFPAY ==
--- NOTE | 2022-03-22 | CA_ITS ---
APPROVED REPORT EXAM: Comprehensive 2D, Doppler, and color-flow Echocardiogram Cloth Spreader Screen Printing: Jamia Babb CRT Ht: 6 ft 1 in Wt: 275lbs BSA: 2.46 BP: 153/94 mmHg Indications: Shortness of Breath, Obesity, smoker 2D Dimensions LVOT 2.25 cm (M/F) 1.5-2.5 LA Volume 38.30 mL LA Volume Index 15.60 mL/m2 (M/F) 16-34 M-Mode Dimensions RVDd 3.17 cm (0.9-2.6) LA Diam 4.00 cm (1.9-4.0) LVDd 4.57 cm (3.5-5.7) Ao Diam 4.24 cm (2.0-3.7) LVDs 3.49 cm (3.5-5.7) IVSd 2.21 cm (0.6-1.1) PWd 0.87 cm (0.6-1.1) EF (Teich) 47.30% FS 23.60% EDV (Teich) 95.90 mL TAPSE 2.66 (<1.7) ESV (Teich) 50.50 mL LV Diastology E Decel Time 150.00 (160-240 msec) E/A Ratio 0.87 MED E' 7.30 (< 7 cm/sec) MED A' 11.00 cm/s E'/MED E' Ratio 8.58 (>14) LAT E' 11.00 (<10 cm/sec) LAT A' 13.40 cm/s E/LAT E' Ratio 5.69 (>14) Aortic Valve AI PHT 663.00 ms AO Peak GR. 6.30 mmHg Mitral Valve MV E Max Remigio. 63.00 (40-130 cm/s) MV A Velocity 72.00 (40-130 cm/s) E/A Ratio 0.87 MV Decel. Time 150.00 (160-240 ms) MV PHT 44.00 ms Pulmonary Valve PV Peak Velocity 129.00 (50-150 cm/s) Tricuspid Valve TR P. Velocity 226.00 cm/s RAP Estimate 10.00 mmHg RVSP 30.40 mmHg Left Ventricle Left atrium is mildly enlarged, left ventricle is normal size, mild concentric left ventricular hypertrophy, estimated ejection fraction 55% with no regional wall motion abnormality, grade 1 diastolic dysfunction seen without tissue Doppler evidence of raise left atrial pressure. Right atrium and right ventricle are mildly enlarged with normal contractility. Aortic Valve Aortic valve is minimally thickened and fibrosed there is no aortic stenosis or aortic insufficiency. Mitral Valve Mitral valve grossly normal, there is trace mitral regurgitation. Tricuspid Valve Tricuspid grossly normal, there is trace tricuspid regurgitation, tricuspid regurgitation jet velocity is inadequate for calculation of the right ventricular systolic pressure. Pulmonic Valve Pulmonic valve is poorly visualized. Great Vessels Aortic root is normal size. Inferior vena cava is poorly visualized. Pericardium No significant pericardial effusion noted. Conclusion 1. Mild biatrial enlargement, normal left ventricular size, mild concentric left ventricular hypertrophy, estimated ejection fraction 55% with no regional wall motion abnormality, grade 1 diastolic dysfunction seen without tissue Doppler evidence of raise left atrial pressure. 2. Mildly enlarged right ventricle with normal contractility. 3. No significant pericardial effusion noted 4. Inferior vena cava is poorly visualized. Electronically signed by : Raffi Veliz MD 03/22/2022 13:18:47
== END ==
PROVIDERS: PCP Family Medicine; Visit Provider Nurse Practitioner
DX: R06.00 Dyspnea, unspecified (principal); I50.33 Acute on chronic diastolic (congestive) heart failure; I11.0 Hypertensive heart disease with heart failure; E66.9 Obesity, unspecified; Z68.36 Body mass index [BMI] 36.0-36.9, adult; Z72.0 Tobacco use
CPT/HCPCS: 93306

== ENCOUNTER 2022-04-18 19:08 | Emergency (ER) | payer OTHER, SELFPAY ==
[2022-04-18 19:15] VITALS: BP 151/99; PULSE 85; RESP 19; TEMP 36.8; O2SAT 98; BMI 35.3
--- NOTE | 2022-04-18 19:48 | EXP.UTC ---
Discharge Plan Disposition Patient Disposition: Home, Self-Care Condition: Good Prescriptions Prescriptions: New colchicine [Colcrys] 0.6 mg tablet 0.6 mg PO DIRECTED Qty: 3 0RF Rx Instructions: Take 2 tablets (1.2mg) now, then wait one hour then take remaining 0.6mg tab No Action bisoprolol fumarate 10 mg tablet 10 mg PO DAILY Qty: 90 3RF losartan 50 mg tablet 50 mg PO DAILY Qty: 90 3RF furosemide [Lasix] 20 mg tablet 20 mg PO DAILY PRN (Reason: edema) Qty: 30 3RF Referrals Follow up/Referrals: Provider,Referral, MD [Primary Care Provider] - See instructions Activity Restrictions/Add. Instructions Additional Instructions/Restrictions: Take medication as prescribed Follow up with your Family Doctor if no improvment or any worsening of symptoms Return if needed Straight to ER if any life threatening symptoms Clinical Impressions Clinical Impression: Gout attack Instructions Patient Instructions: DI for Gout, Gout, Colchicine Discharge ED Provider: Bryanna Mello [facility] [place] Stated complaint: possible gout R Foot Mode of Arrival: Ambulatory Source of Information: Patient Limitations: No Limitations Time Seen by Provider: 04/18/22 19:48 Description of Symptoms (Recalled from Triage Doc. by RN): PATIENT C/O GOUT TO RIGHT HEEL X 3 DAYS HEENT Symptoms (Recalled from RN notes): No Resp Symptoms (Recalled from RN notes): No Skin Symptoms (Recalled from RN notes): No MS Symptoms (Recalled from RN notes): Yes Functional Status (Recalled from RN notes): WNL History of Present Illness Provider Complaint: Patient states that he gets gout attack about once a year States that for the last 3 days he has been having pain in his right ankle like pins and pain State that it feels like it does when he has gout flare States that he comes in and gets medication to help it States that this evening it was still hurting and denies known injury so he came in to get something to help Related Data Previous Rx's Medication Instructions Recorded bisoprolol fumarate 10 mg tablet 10 mg PO DAILY #90 tabs 02/28/21 losartan 50 mg tablet 50 mg PO DAILY #90 tabs 02/28/21 furosemide 20 mg tablet (Lasix) 20 mg PO DAILY PRN edema #30 tabs 09/15/21 albuterol sulfate 90 mcg/actuation 1 inh inhalation Q4-6H PRN 03/16/22 aerosol inhaler shortness of breath or wheezing #6.7 grams colchicine 0.6 mg tablet (Colcrys) 0.6 mg PO DIRECTED #3 tabs 04/18/22 Allergies Allergy/AdvReac Type Severity Reaction Status Date / Time Penicillins Allergy Verified 03/16/22 10:37 Worker's Comp Is this a Worker's Comp case?: No PFSH PFSH Medical History (Updated 04/18/22 @ 20:01 by Bryanna Mello APRN) Hypertension Numbness and tingling in both hands Tachycardia Social History (Updated 04/18/22 @ 19:24 by Shelley Aguero RN) Smoking Status: Former smoker alcohol intake: current substance use type: denies use current occupational status: employed household members: spouse and none housing: house caffeine: Yes ROS Obtained: Yes All systems reviewed & no additional complaints except as documented and Yes Systems reviewed as appropriate & no additional complaints except as documented ENT Ears, Nose, Mouth, and Throat: Reports system reviewed and no additional complaints, except as documented and Reports as per HPI Cardiovascular Cardiovascular: Reports system reviewed and no additional complaints, except as documented and Reports as per HPI Musculoskeletal Musculoskeletal: Reports system reviewed and no additional complaints, except as documented and Reports as per HPI Comments: Pain and swelling in right ankle area Physical Exam General General appearance: alert and in no apparent distress Respiratory Respiratory exam: Present normal lung sounds bilaterally; Absent respiratory distress or wheezes Cardiovascular Cardiovascular exam: Present regular rate and normal rhythm Expanded
[2022-04-18 20:11] VITALS: BP 151/99; PULSE 85; RESP 19; TEMP 36.8; O2SAT 98
== END 2022-04-18 20:20 | disposition home or self-care (01) ==
PROVIDERS: Emergency Provider Nurse Practitioner
DX: M10.9 Gout, unspecified (principal)
CPT/HCPCS: 96372; 99213; G0463

== ENCOUNTER 2022-07-20 10:36 | Emergency (ER) | payer OTHER, SELFPAY ==
--- NOTE | 2022-07-20 10:53 | XR_ITS ---
FINAL REPORT CLINICAL HISTORY: PULLED BY HORSE FINDINGS: Right wrist Three views were obtained. There is no acute fracture or dislocation. The joint spaces appear normal. No soft tissue abnormality is identified. IMPRESSION: No acute process. Reviewed, Interpreted and Dictated by José Manuel Magaña MD Transcribed by Nina Cueto Authenticated and [facility]
--- NOTE | 2022-07-20 10:53 | XR_ITS ---
FINAL REPORT CLINICAL HISTORY: WAS PULLED BY HORSE FINDINGS: Right elbow Three views were obtained. There is no acute fracture or dislocation. The joint spaces appear normal. No joint effusion is identified. No soft tissue abnormality is identified. IMPRESSION: No acute process. Reviewed, Interpreted and Dictated by José Manuel Magaña MD Transcribed by Nina Cueto Authenticated and [facility]
--- NOTE | 2022-07-20 10:53 | XR_ITS ---
FINAL REPORT CLINICAL HISTORY: PULLED BY HORSE FINDINGS: Right hand Three views were obtained. There is no acute fracture or dislocation. The joint spaces appear normal. There is mild soft tissue swelling over the dorsum of the hand. IMPRESSION: No acute process. Reviewed, Interpreted and Dictated by José Manuel Magaña MD Transcribed by Nina Cueto Authenticated and [facility]
--- NOTE | 2022-07-20 10:53 | XR_ITS ---
FINAL REPORT CLINICAL HISTORY: A HORSE JERKED HIM PULLING SHOULDER FINDINGS: Right shoulder Three views were obtained. There is no acute fracture or dislocation. The joint spaces appear normal. No soft tissue abnormality is identified. IMPRESSION: No acute process. Reviewed, Interpreted and Dictated by José Manuel Magaña MD Transcribed by Nina Cueto Authenticated and [facility]
[2022-07-20 11:15] VITALS: BP 112/81; PULSE 93; RESP 19; TEMP 36.6; O2SAT 98; BMI 33.1
--- NOTE | 2022-07-20 11:45 | EXP.UTC ---
Discharge Plan Disposition Patient Disposition: Home, Self-Care Condition: Good Prescriptions Prescriptions: New methylprednisolone [Medrol (Dejon)] 4 mg tablets,dose pack See Rx Instructions .Route .COMPLEX 6 Days Qty: 21 0RF Rx Instructions: taper pack; methocarbamol 500 mg tablet 500 mg PO TID Qty: 15 0RF No Action furosemide [Lasix] 20 mg tablet 20 mg PO DAILY PRN (Reason: edema) Qty: 30 3RF bisoprolol fumarate 10 mg tablet 10 mg PO DAILY Qty: 90 3RF losartan 50 mg tablet 50 mg PO DAILY Qty: 90 3RF colchicine [Colcrys] 0.6 mg tablet 0.6 mg PO DIRECTED Qty: 3 0RF Rx Instructions: Take 2 tablets (1.2mg) now, then wait one hour then take remaining 0.6mg tab Referrals Follow up/Referrals: Provider,Referral, MD [Primary Care Provider] - See instructions Activity Restrictions/Add. Instructions Additional Instructions/Restrictions: *Ibuprofen kait 6 hours with meal as needed for pain/inflammation *Not additional anti-inflammatory like motrin, aleve, advil with the above amount of ibuprofen. You can still take Tylenol every 4 hours as needed if you need something else for pain *Ice 20 minutes every 2 hours for the first 48 hours after the initial injury followed by moist heat every 20 minutes 3-4 times a day to affected area *Muscle relaxer every 8 hours as needed for muscle spasms but remember, it WILL cause drowsiness You cannot take it and drive, operate machinery or care for small children. *Keep this area active, no movement leads to more stiffness, However take it easy and avoid heavy lifting pushing or pulling *Follow up with you family doctor if no improvement for further treatment ? Clinical Impressions Clinical Impression: Muscle spasm Instructions Patient Instructions: Methocarbamol, DI for Muscle Spasm Discharge ED Provider: Bryanna Mello [facility] [place] HPI General Stated complaint: RT arm pain AO 06/07 Mode of Arrival: Ambulatory Source of Information: Patient Limitations: No Limitations Time Seen by Provider: 07/20/22 11:45 Description of Symptoms (Recalled from Triage Doc. by RN): PATIENT C/O PAIN TO RIGHT SHOULDER DOWN ARM. HE REPORTS HE FELL FROM A LADDER APPROX 1.5 MONTHS AGO, BUT STATES A HORSE JERKED HIS ARM TODAY AND CAUSED THE PAIN TO RE-OCCUR HEENT Symptoms (Recalled from RN notes): No Resp Symptoms (Recalled from RN notes): No Skin Symptoms (Recalled from RN notes): No MS Symptoms (Recalled from RN notes): Yes Functional Status (Recalled from RN notes): WNL History of Present Illness Provider Complaint: Patient states that he fell from ladder about 2mths ago States that he hurt his right shoulder and arm State that earlier today a horse jerked his right arm now he is having pain from his right shoulder shooting down his right arm to his wrist States that he is able to move it but hurts when he raises it Related Data Previous Rx's Medication Instructions Recorded furosemide 20 mg tablet (Lasix) 20 mg PO DAILY PRN edema #30 tabs 09/15/21 albuterol sulfate 90 mcg/actuation 1 inh inhalation Q4-6H PRN 03/16/22 aerosol inhaler shortness of breath or wheezing #6.7 grams colchicine 0.6 mg tablet (Colcrys) 0.6 mg PO DIRECTED #3 tabs 04/18/22 bisoprolol fumarate 10 mg tablet 10 mg PO DAILY #90 tabs 05/05/22 losartan 50 mg tablet 50 mg PO DAILY #90 tabs 05/09/22 methocarbamol 500 mg tablet 500 mg PO TID #15 tabs 07/20/22 methylprednisolone 4 mg tablets in See Rx Instructions .Route 07/20/22 a dose pack (Medrol (Dejon)) .COMPLEX 6 days #21 tabs Allergies Allergy/AdvReac Type Severity Reaction Status Date / Time Penicillins Allergy Verified 03/16/22 10:37 Worker's Comp Is this a Worker's Comp case?: No [facility] Disclaimer: The information contained in this section may have been updated after the patient was seen, as this information can be updated by other users. Medical History (Updated 07/20/22 @ 12:36
[2022-07-20 12:37] VITALS: BP 112/81; PULSE 93; RESP 19; TEMP 36.6; O2SAT 98
== END 2022-07-20 12:40 | disposition home or self-care (01) ==
PROVIDERS: Emergency Provider Nurse Practitioner
DX: M62.838 Other muscle spasm (principal)
CPT/HCPCS: 73030; 73080; 73110; 73130; 99213; G0463

== ENCOUNTER → 2023-01-05 08:34 | Outpatient (CLI) | payer OTHER, SELFPAY ==
[2023-01-05 09:21] LABS: Basophils # 0.1 K/mm3 (0-0.2); Basophils % 1.7 % (0.1-2.0); Eosinophils # 0.4 K/mm3 (0.0-0.4); Eosinophils % 4.2 % (0.1-12.0); Hematocrit 52.7 % (42.0-52.0); Hemoglobin 17.5 g/dL (14.1-18.0); Lymphocytes # 2.1 K/mm3 (0.7-4.5); Lymphocytes % 26.1 % (10-50); Mean Corpuscular HGB Conc 33.3 g/dL (31.8-35.4); Mean Corpuscular Hemoglobin 31.6 pg (27.0-31.2); Mean Corpuscular Volume 95.1 fl (80-94); Mean Platelet Volume 8.1 fl (7.4-10.4); Monocytes # 0.5 K/mm3 (0.1-1.0); Neutrophils # 5.1 K/mm3 (1.8-7.8); Neutrophils % 61.9 % (37.0-80.0); Platelet Count 280 K/mm3 (142-424); Red Blood Count 5.54 M/mm3 (4.60-6.20); Red Cell Distribution Width 13.3 % (11.5-17.5); White Blood Count 8.2 K/mm3 (4.8-10.8)
[2023-01-05 10:01] LABS: Alanine Aminotransferase 35 U/L (12-78); Albumin Level 4.2 g/dl (3.5-5.0); Alkaline Phosphatase 67 U/L (38-126); Anion Gap 19.5 mEq/L (5-15); Aspartate Amino Transferase 39 U/L (17-59); Bilirubin,Indirect 0.5 mg/dL (0.0-0.9); Bilirubin,Total 0.5 mg/dl (0.2-1.3); Bilirubin,Unconjugated 0.5 mg/dL (0.0-1.1); Blood Urea Nitrogen 15 mg/dl (9-20); Carbon Dioxide 21 mmol/L (22.0-30.0); Chloride 100 mmol/L (98-107); Chol/HDL Ratio 4.4 (1-3.5); Cholesterol 190 mg/dl (140-200); Estimated Glomerular Filt Rate 73 ml/min (>60); GFR (African American) 88 ML/MIN (>60); Glucose 132 mg/dl (74-100); HDL Cholesterol 43 mg/dl (40-60); Magnesium 1.9 mg/dl (1.6-2.3); Potassium 4.5 mmoL/L (3.5-5.1); Sodium 136 mmol/L (136-145); Total Protein,Serum 7.2 g/dl (6.3-8.2); Triglycerides 234 mg/dl (30-150); VLDL Cholesterol 47 mg/dL (0-40)
[2023-01-05 10:12] LABS: Direct LDL Cholesterol 126.55 mg/dL (100-129)
[2023-01-05 10:22] LABS: Free T4 (Free Thyroxine) 1.13 ng/dl (0.78-2.19)
[2023-01-05 10:29] LABS: Troponin I < 0.01 ng/ml (0.00-0.034)
[2023-01-05 10:35] LABS: Thyroid Stimulating Hormone 0.79 uIU/mL (0.465-4.68)
== END ==
PROVIDERS: Visit Provider Physician Assistant
DX: I10 Essential (primary) hypertension (principal); I51.89 Other ill-defined heart diseases; K21.9 Gastro-esophageal reflux disease without esophagitis; E66.9 Obesity, unspecified; Z72.0 Tobacco use; Z68.36 Body mass index [BMI] 36.0-36.9, adult
CPT/HCPCS: 36415; 80048; 80061; 80076; 83735; 84439; 84443; 84484; 85025

== ENCOUNTER 2023-01-12 17:36 | Emergency (ER) | payer OTHER, SELFPAY ==
[2023-01-12] VITALS (8 sets, daily range): BP systolic 119–153; BP diastolic 61–103; PULSE 77–92; RESP 15–21; TEMP 36.5–36.7; O2SAT 95–100; BMI 35.9
--- NOTE | 2023-01-12 17:36 | ECG_ITS ---
APPROVED REPORT Exam: Resting ECG HR:89 bpm ECG Measurements Heart Rate 89 AXES ME 135 P 58 QRSd 89 QRS 51 QT 351 T 46 QTc 398 Conclusion SINUS RHYTHM NORMAL ECG UNCONFIRMED REPORT Electronically signed by : Bacilio Pat MD 01/13/2023 07:13:06
--- NOTE | 2023-01-12 17:57 | XR_ITS ---
PROCEDURE INFORMATION: Exam: XR Chest Exam date and time: 01/12/2023 5:59 PM Age: 42 years old Clinical indication: Chest wall pain; Additional info: Chest pain TECHNIQUE: Imaging protocol: Radiologic exam of the chest. Views: 2 views. COMPARISON: CR XR CHEST 2V 12/01/2019 10:40 PM FINDINGS: Lungs: Unremarkable. No consolidation. Pleural spaces: Unremarkable. No pleural effusion. No pneumothorax. Heart/Mediastinum: Unremarkable. No cardiomegaly. Bones/joints: Chronic fracture deformities demonstrated right posterolateral 5th and 6th ribs. Monitor superimposed upon the right posterolateral 4th rib. Possible posterior fracture in this region. Chronic fracture posterior left 3rd rib again demonstrated. IMPRESSION: 1. Multiple bilateral chronic fracture deformities as described above. 2. Possible posterior right 4th rib fracture incompletely visualized. Consider follow-up with computerized tomography to further evaluate for an acute fracture.
[2023-01-12 18:05] LABS: Chloride 106 mmol/L (98-107); Potassium 4.3 mmoL/L (3.5-5.1); Sodium 139 mmol/L (136-145)
[2023-01-12 18:08] LABS: Anion Gap 13.3 mEq/L (5-15); Blood Urea Nitrogen 17 mg/dl (9-20); Calcium 8.8 mg/dl (8.4-10.2); Carbon Dioxide 24 mmol/L (22.0-30.0); Creatinine Clearance Estimated 169 mL/min (50-200); Estimated Glomerular Filt Rate 81 ml/min (>60); GFR (African American) 98 ML/MIN (>60); Glucose 99 mg/dl (74-100)
[2023-01-12 18:10] LABS: Basophils # 0.1 K/mm3 (0-0.2); Basophils % 1.5 % (0.1-2.0); Eosinophils # 0.4 K/mm3 (0.0-0.4); Hematocrit 49.6 % (42.0-52.0); Hemoglobin 16.3 g/dL (14.1-18.0); Lymphocytes # 2.6 K/mm3 (0.7-4.5); Lymphocytes % 28.2 % (10-50); Mean Corpuscular HGB Conc 32.9 g/dL (31.8-35.4); Mean Corpuscular Hemoglobin 31.4 pg (27.0-31.2); Mean Corpuscular Volume 95.3 fl (80-94); Mean Platelet Volume 7.4 fl (7.4-10.4); Monocytes # 0.7 K/mm3 (0.1-1.0); Monocytes % 7.5 % (1.7-9.3); Neutrophils # 5.4 K/mm3 (1.8-7.8); Neutrophils % 58.9 % (37.0-80.0); Platelet Count 219 K/mm3 (142-424); Red Cell Distribution Width 13.1 % (11.5-17.5); White Blood Count 9.2 K/mm3 (4.8-10.8)
--- NOTE | 2023-01-12 18:23 | HMH.EDGENADL ---
Discharge Plan Disposition Patient Disposition: Still a Patient Prescriptions Prescriptions: No Action albuterol sulfate 90 mcg/actuation HFA aerosol inhaler 1 inh IH Q4-6H PRN (Reason: shortness of breath or wheezing) Qty: 6.7 1RF amlodipine [Norvasc] 5 mg tablet 5 mg PO DAILY Qty: 30 3RF Referrals Follow up/Referrals: Provider,Referral, MD [Primary Care Provider] - See instructions Clinical Impressions Clinical Impression: Chest pain Discharge ED Provider: Ralf Dowling General Adult HPI General Chief complaint: Chest Pain Stated complaint: chest pain Time Seen by Provider: 01/12/23 18:23 Mode of Arrival: Ambulatory Source of Information: Patient Limitations: No Limitations Description of Symptoms (Recalled from ER Triage Doc. by RN): Presents to ED with complaints of intermittent midsternal chest pain that started last week however constant x2 hours. Patient describes pain as drilling / non radiating pain. Patient denies alleviating or contributing factors. Patient follows [facility] for cadiology. Rx'd Bisoprolol and Amlodipine. Stress test scheduled the of this month. +ASA 81mg daily. History of Present Illness HPI narrative: Patient is a 42-year-old male presenting today with chest pain. This has been intermittent over the last week located substernal has had some associated paresthesias of bilateral arms but no radiation no diaphoresis or shortness of breath or nausea associate with this. He did state that he has had some heartburn has been treating it with antacid this week and currently does not have any other symptoms. There is a pleuritic component to this but at the moment no pain with inspiration. States that this is very different than pain he has had in the past from a chest standpoint. He has never had a heart catheter or stress test but does have a stress test that is scheduled with Dr. Ventura next week. Related Data Previous Rx's Medication Instructions Recorded albuterol sulfate 90 mcg/actuation 1 inh inhalation Q4-6H PRN 09/14/22 aerosol inhaler shortness of breath or wheezing #6.7 grams amlodipine 5 mg tablet (Norvasc) 5 mg PO DAILY #30 tabs 01/05/23 Allergies Allergy/AdvReac Type Severity Reaction Status Date / Time Penicillins Allergy Verified 01/05/23 09:00 [facility] Disclaimer: The information contained in this section may have been updated after the patient was seen, as this information can be updated by other users. Medical History (Updated 01/12/23 @ 19:12 by Ralf Dowling MD) Chest pain Hypertension Numbness and tingling in both hands Tachycardia Social History Smoking Status: Never smoker alcohol intake: current substance use type: denies use current occupational status: employed Travel in the last 8 weeks: None household members: spouse and none housing: house caffeine: Yes ROS Obtained: Yes All systems reviewed & no additional complaints except as documented Physical Exam General General appearance: alert Respiratory Respiratory exam: Present normal lung sounds bilaterally; Absent respiratory distress or wheezes Cardiovascular Cardiovascular exam: Present regular rate; Absent tachycardia Abdominal Exam Abdominal exam: Present soft; Absent distention or tenderness Neurological Exam Neurological exam: Present alert and oriented X3 Medical Decision Making Dimas Inquiry Pt receiving controlled substance: No Vital Signs: 01/12/23 17:38 01/12/23 18:01 01/12/23 18:31 Temperature 97.7 F Temperature Source Oral Pulse Rate 88 80 Pulse Rate [Right] 92 H Respiratory Rate 17 Blood Pressure 131/85 119/61 Blood Pressure [Right Arm] 153/103 H Blood Pressure Mean 100 80 Blood Pressure Mean [Right Arm] 119 Blood Pressure Source [Right Arm] Automatic Cuff Blood Pressure Position [Right Arm] Sitting 02 Sat by Pulse Oximetry 100 96 97 Oxygen De
[2023-01-12 18:24] LABS: Troponin I < 0.01 ng/ml (0.00-0.034)
--- NOTE | 2023-01-12 18:43 | PC.NURSE ---
PT RESTING IN BED NOTING NEEDED AT THIS TIME
[2023-01-12 18:57] LABS: D-Dimer 0.68 ug/mL (0.0-0.5)
--- NOTE | 2023-01-12 19:15 | PC.NURSE ---
Report given to plant operator/shift supervisor
--- NOTE | 2023-01-12 19:31 | PC.NURSE ---
Rounded on pt. No needs or complaints voiced at this time.
[2023-01-12 21:06] LABS: Troponin I < 0.01 ng/ml (0.00-0.034)
== END 2023-01-12 21:46 | disposition home or self-care (01) ==
PROVIDERS: Emergency Provider Student in an Organized Health Care Education/Training Program
DX: R07.9 Chest pain, unspecified (principal); R20.2 Paresthesia of skin; I10 Essential (primary) hypertension
CPT/HCPCS: 71046; 80048; 84484; 85025; 85378; 93005; 99285

== ENCOUNTER → 2023-01-17 12:28 | Outpatient (CLI) | payer OTHER, SELFPAY ==
--- NOTE | 2023-01-17 12:28 | NM_ITS ---
APPROVED REPORT Exam: Nuclear Stress Test Indication: chest pain..soa..palpitations Patient Location: Outpatient Stress Tech: Shanae Quinones [place] Tech:Rosa Neville CLAUDIAKeyon RT(R)(N) Ht: 6 ft 2 in Wt: 282 lbs HR: 90 bpm BP: 116/82 mmHg BSA: 2.52 m2 TID: 1.11 BMI: 36.2 History: chest pain..soa..palpitations Procedure: Patient exercised on Fabio protocol 7:30 minutes and sec, resting heart rate 90 bpm, resting blood pressure 116/82 mmHg, with exercise maximum heart rate achived was 136 bpm which is 77 % of the maximum predicted heart rate and blood pressure was 176/98 mmHg. Test was stopped due to fatigue. Patient denied any complaint of chest pain. Patient has exercise capacity, achieved 10.1 METs of workload on treadmill, the blood pressure response to exercise was . Cardiac Stress and Resting SPECT Images: Cardiac Stress and Resting SPECT images were obtained using technetium 99m Myoview 32.9 mCi stress and 10.97 mCi at rest. Study is technically difficult to proximity of GI uptake in resting and stress SPECT images. This may affect the diagnostic capacity of the study Resting and supine stress imaging demonstrate a large-sized, moderate, fixed perfusion defect in the inferior LV wall. This defect is no longer visualized in prone stress imaging. Findings are suggestive of diaphragmatic attenuation. Gated imaging demonstrates normal global LV systolic function. LVEF is calculated at 56% Conclusion: Study is technically difficult to proximity of GI uptake in resting and stress SPECT images. This may affect the diagnostic capacity of the study Diaphragmatic attenuation is present. No definite fixed or reversible perfusion defects. Gated imaging demonstrates normal global LV systolic function. LVEF is calculated at 56% Electronically signed by : Irene Flores, 01/18/2023 00:54:11
--- NOTE | 2023-01-17 14:32 | CA_ITS ---
APPROVED REPORT Exam: Exercise Treadmill Technologist: Shanae Quinones Ht: 6 ft 2 in Wt: 282 lbs BSA: 2.52 m2 HR: 84 bpm BP: 116/82 mmHg Rhythm: NSR Indications: Chest pain, abnormal ekg Medical History Medications: Amlodipine,,,,, Albuterol,,,,,Bisoprolol Stress Test Details Test: Fabio HR Resting HR: 90 bpm Max Heart Rate (APMHR): 176 bpm Max HR Achieved: 136 bpm Target HR (85% APMHR): 150 bpm % of APMHR: 77 Recovery HR: 101 bpm BP Resting BP: 116.0/82.0 mmHg Max BP: 176.0/98.0 mmHg Recovery BP: 143.0/85.0 mmHg BP response to stress: Normal blood pressure response to stress. ECG Resting ECG: Normal sinus rhythm, non-specific T wave abnormalities Stress EC.[address]-depression Arrhythmia: None Recovery ST Change: New T-wave inversion in inferolateral leads Recovery Arrhythmia: None Clinical Exercise duration: 07:30 min Highest Stage Achieved: Exercise capacity: 10.1 METs Overall Exercise Capacity for Age: Good Stress ECG Conclusion Patient exercised 7:30 on Fabio Protocol. Test stopped due to shortness of air. Symptoms: No chest pain. Arrhythmias/Ectopy: None Baseline ECG: Normal sinus rhythm. Non-specific T-wave changes in the inferior leads ST-T Changes: Approximately 0.[address] depression inferiorly and laterally with T wave inversion in recovery. Conclusion: Suboptimal GXT due to inability to achieve target HR. HR is blunted due to prior administration of home [id number]-[id number]. Good exercise capacity for age and sex with normal BP response. Baseline ECG demonstrated normal sinus rhythm, non-specific T-wave changes in inferior leads. At peak stress, there was 0.[address] depression and new T-wave inversion. Stress ECG findings are suggestive of possible ischemia. Myoview images reported separately. Test Summary REST . . . . . . . Sitting REST . . . . . . . Standing REST 03:46 0.0 0.0 90 . 116/ 82 . . Stage 1 01:00 10.0 1.7 103 . . . . Stage 1 02:00 10.0 1.7 103 . . . . Stage 1 03:00 10.0 1.7 107 . 142/ 84 . . Stage 2 01:00 12.0 2.5 114 . . . . Stage 2 02:00 12.0 2.5 119 . . . . Stage 2 03:00 12.0 2.5 124 . 164/ 86 . . Stage 3 . . . . . . . Myoview Injected Stage 3 01:00 14.0 3.4 132 . . . . Stage 3 01:30 14.0 3.4 136 . . . Stop exercise at 07:30 RECOVERY 01:00 0.0 0.0 123 . . . . RECOVERY 02:00 0.0 0.0 108 . . . . RECOVERY 03:00 0.0 0.0 103 . 176/ 98 . . RECOVERY 04:00 0.0 0.0 103 . 146/ 88 . . RECOVERY 05:00 0.0 0.0 97 . 146/ 88 . . RECOVERY 06:00 0.0 0.0 95 . 143/ 85 . . RECOVERY 06:03 0.0 0.0 98 . 143/ 85 . . Electronically signed by : Irene Flores, 01/18/2023 00:47:29
== END ==
PROVIDERS: PCP Internal Medicine; Visit Provider Physician Assistant
DX: R07.9 Chest pain, unspecified (principal); I10 Essential (primary) hypertension; E66.9 Obesity, unspecified; Z68.36 Body mass index [BMI] 36.0-36.9, adult
CPT/HCPCS: 78452; 93017; A9502

== ENCOUNTER 2023-02-21 11:24 | Day surgery (SDC) | payer OTHER, SELFPAY ==
[2023-02-21] VITALS (10 sets, daily range): BP systolic 126–158; BP diastolic 55–120; PULSE 72–85; RESP 16–18; O2SAT 91–96; BMI 35.8
--- NOTE | 2023-02-21 07:12 | IR_ITS ---
APPROVED REPORT Patient Location: Outpatient PROCEDURES Left heart catheterization Left ventriculogram Selective coronary angiogram INDICATION High risk abnormal Myoview, Angina pectoris, Informed consent was obtained prior to the procedure. COMPLICATIONS None Estimated Blood Loss: Less than 10 mls TECHNIQUE One percent lidocaine used to anesthetize the right anterior aspect of the wrist. The right radial artery was accessed via the Seldinger technique. A 6 Swedish sheath was placed in the right radial artery. 150 mg magnesium sulfate, 800 mcg of nitroglycerin, 1mg Lidocaine and 5000 U Heparin were given through the arterial sheath. The papa catheter was also used to perform left heart catheterization, left ventriculogram and selective coronary angiogram. At the end of the procedure the sheath was removed good hemostasis was achieved using Traclet band, patient was transferred to the postop holding area in stable condition. ANGIOGRAPHIC RESULTS The left main artery Normal The left anterior descending artery Is proximally normal and has a mild myocardial bridge which creates a 20% stenosis during systole The circumflex artery Normal The right coronary artery Dominant with proximal 10% stenosis and a distal eccentric 10 to 20% stenosis The TOL[place]INO ventriculogram reveals 65% The left ventricular end-diastolic pressure 10 mmHg IMPRESSION Mild nonflow limiting coronary artery disease involving the right coronary artery as described above Mild mid LAD myocardial bridge which is clinically insignificant Normal ejection fraction Normal left ventricular end-diastolic pressure PLAN 1. Standard risk factor modification for nonflow-limiting coronary disease Electronically signed by : Everton Ventura MD 02/21/2023 14:05:42
[2023-02-21 12:35] LABS: Chloride 101 mmol/L (98-107); Sodium 138 mmol/L (136-145)
[2023-02-21 12:36] LABS: Potassium 4.1 mmoL/L (3.5-5.1)
[2023-02-21 12:38] LABS: Basophils # 0.1 K/mm3 (0-0.2); Basophils % 1.3 % (0.1-2.0); Blood Urea Nitrogen 16 mg/dl (9-20); Creatinine Clearance Estimated 153 mL/min (50-200); Eosinophils # 0.4 K/mm3 (0.0-0.4); Eosinophils % 4.2 % (0.1-12.0); Estimated Glomerular Filt Rate 73 ml/min (>60); GFR (African American) 88 ML/MIN (>60); Hematocrit 53.4 % (42.0-52.0); Hemoglobin 17.1 g/dL (14.1-18.0); Lymphocytes # 2.6 K/mm3 (0.7-4.5); Lymphocytes % 25.5 % (10-50); Mean Corpuscular Hemoglobin 30.4 pg (27.0-31.2); Mean Platelet Volume 7.7 fl (7.4-10.4); Monocytes # 0.7 K/mm3 (0.1-1.0); Monocytes % 6.8 % (1.7-9.3); Neutrophils # 6.2 K/mm3 (1.8-7.8); Neutrophils % 62.1 % (37.0-80.0); Platelet Count 313 K/mm3 (142-424); Red Blood Count 5.61 M/mm3 (4.60-6.20); Red Cell Distribution Width 13.1 % (11.5-17.5)
[2023-02-21 12:39] LABS: Anion Gap 15.1 mEq/L (5-15); Calcium 9.2 mg/dl (8.4-10.2); Carbon Dioxide 26 mmol/L (22.0-30.0); Glucose 96 mg/dl (74-100)
== END 2023-02-21 15:54 | disposition home or self-care (01) ==
PROVIDERS: Visit Provider Internal Medicine
DX: I25.119 Atherosclerotic heart disease of native coronary artery with unspecified angina pectoris (principal); I10 Essential (primary) hypertension; E66.9 Obesity, unspecified
CPT/HCPCS: 80048; 85025; 93458; 99152; C1725; C1760; C1769; J1644

== ENCOUNTER 2024-02-24 15:28 | Emergency (ER) | payer OTHER, SELFPAY ==
[2024-02-24 15:35] VITALS: BP 141/103; PULSE 109; RESP 20; TEMP 36.7; O2SAT 97; BMI 34.7
--- NOTE | 2024-02-24 15:42 | ED_ITS ---
Discharge Plan Disposition Patient Disposition: Home, Self-Care Condition: Good Prescriptions Prescriptions: New erythromycin 5 mg/gram (0.5 %) ointment 0.5 inch Eye-Left QID 7 Days Qty: 3.5 0RF cephalexin 500 mg capsule 500 mg PO QID 10 Days Qty: 40 0RF No Action bisoprolol fumarate 10 mg tablet See Rx Instructions .ROUTE .COMPLEX Qty: 90 4RF Dose Instruction: Take 1 tablet by mouth once daily Rx Instructions: Take 1 tablet by mouth once daily Referrals Follow up/Referrals: Provider,Referral, MD [Primary Care Provider] - See instructions Activity Restrictions/Add. Instructions Additional Instructions/Restrictions: Take tylenol or ibuprofen for pain or fever. Take the medications as directed. Follow up with your regular doctor. GO TO THE ER FOR ANY WORSENING SYMPTOMS Clinical Impressions Clinical Impression: Hordeolum externum left lower eyelid Instructions Patient Instructions: [place] [facility] for Hordeolum, Erythromycin Ophthalmic Discharge ED Provider: Luis Goodman [facility] [place] HPI General Stated complaint: Left eye red, swollen,itches Time Seen by Provider: 02/24/24 15:42 History of Present Illness Provider Complaint: He states that for the past 3 days he has had left eye irritation, swelling of the lower eye lid and redness of that eye. He denies any injury or foreign body. He states that his vision is not affected. Related Data Previous Rx's Medication Instructions Recorded bisoprolol fumarate 10 mg tablet See Rx Instructions .Route 06/27/23 .COMPLEX #90 tabs cephalexin 500 mg capsule 500 mg PO QID 10 days #40 caps 02/24/24 erythromycin 5 mg/gram (0.5 %) eye 0.5 inch Eye-Left QID 7 days #3.5 02/24/24 ointment grams Allergies Allergy/AdvReac Type Severity Reaction Status Date / Time Penicillins Allergy Verified 03/15/23 10:45 [facility] Disclaimer: The information contained in this section may have been updated after the patient was seen, as this information can be updated by other users. Medical History (Updated 02/24/24 @ 16:09 by Luis Goodman APRN) Atrial fibrillation Chest pain Hypertension Numbness and tingling in both hands Tachycardia Surgical History (Updated 02/24/24 @ 15:49 by Shelley Aguero RN) History of cardiac cath Social History Smoking Status: Current some day smoker tobacco type: smokeless tobacco alcohol intake: current alcohol intake frequency: a few times a week substance use type: denies use current occupational status: employed Travel in the last 8 weeks: None household members: spouse and none housing: house caffeine: Yes ROS Obtained: Yes All systems reviewed & no additional complaints except as documented Constitutional Constitutional: Denies chills and Denies fever(s) Eyes Eyes: Denies change in vision, Reports eye discharge and Reports irritation ENT Ears, Nose, Mouth, and Throat: Denies dizziness, Denies otalgia and Denies sore throat Cardiovascular Cardiovascular: Denies chest pain Respiratory Respiratory: Denies shortness of breath, Denies chest congestion, Denies cough, Denies stridor and Denies wheezing Gastrointestinal Gastrointestingal: Denies nausea or vomiting Musculoskeletal Musculoskeletal: Reports system reviewed and no additional complaints, except as documented and Denies arthralgias Integumentary/Breasts Skin/Breast: Denies rash Neurologic Neurologic: Denies dizziness and Denies paresthesias Allergic/Immunologic Allergic/Immunologic: Denies wheezing Physical Exam General General appearance: alert and in no apparent distress Head Head exam: atraumatic, normocephalic and normal inspection Eye Eye exam: Present PERRL and EOMI Expanded Eye Exam Eyelids: left: erythema and stye and right: normal inspection ENT ENT exam: Present normal exam, normal oropharynx, mucous membranes moist, TM's normal bilaterally and normal external ear exam Neck Neck exam: Present normal inspection, full ROM and trachea midline; Absent meningismus or lymphadenopathy Chest Chest inspection: Present normal inspection and symmetric chest wall rise; Absent tenderness Respiratory Respiratory exam: Present normal lung sounds bilaterally; Absent respiratory distress Cardiovascular Cardiovascular exam: Present regular rate and normal rhythm; Absent JVD Abdominal Exam Abdominal exam: Present soft and normal bowel sounds; Absent distention, tenderness or guarding Extremities Exam Extremities exam: Present normal inspection, full ROM and normal capillary refill; Absent calf tenderness Back Exam Back exam: Present normal inspection; Absent tenderness Neurological Exam Neurological exam: Present alert and oriented X3 Psychiatric Psychiatric exam: Present normal affect and normal mood Skin Skin exam: Present warm, dry, intact and normal color Lymphatic Lymphatic Findings: no adenopathy Medical Decision Making Medical Records Medical records reviewed: No I reviewed the patient's medical records. Dimas Inquiry Pt receiving controlled substance: No
[2024-02-24 16:09] VITALS: BP 141/103; PULSE 109; RESP 20; TEMP 36.7; O2SAT 97
== END 2024-02-24 16:12 | disposition home or self-care (01) ==
PROVIDERS: Emergency Provider Nurse Practitioner Family
DX: H00.015 Hordeolum externum left lower eyelid (principal); H53.142 Visual discomfort, left eye
CPT/HCPCS: 99212; 99214; G0463

== ENCOUNTER 2024-09-22 09:13 | Emergency (ER) | payer OTHER, SELFPAY ==
--- NOTE | 2024-09-22 10:21 | ED_ITS ---
Discharge Plan Disposition Patient Disposition: Home, Self-Care Condition: Good Prescriptions Prescriptions: No Action bisoprolol fumarate 10 mg tablet 10 mg PO DAILY Qty: 90 3RF Referrals Follow up/Referrals: Provider,Referral, [Primary Care Provider] - See instructions Activity Restrictions/Add. Instructions Additional Instructions/Restrictions: Drink plenty of fluids. Take ibuprofen for pain. Follow up with your regular doctor. GO TO THE ER FOR ANY WORSENING SYMPTOMS Clinical Impressions Clinical Impression: Exacerbation of gout Instructions Patient Instructions: DI for Gout, Ketorolac Injection, Dexamethasone Injection Print Language Print Language: [place] Discharge ED Provider[place] Luis [place] [facility] [facility] [place] General Stated complaint: foot pain; LEFT Time Seen by Provider: 09/22/24 10:15 Related Data Previous Rx's ?Medication ?Instructions ?Recorded bisoprolol fumarate 10 mg tablet 10 mg PO DAILY #90 tabs 07/23/24 Allergies Allergy/AdvReac Type Severity Reaction Status Date / Time Penicillins Allergy Verified 07/23/24 08:29 [facility] Disclaimer: The information contained in this section may have been updated after the patient was seen, as this information can be updated by other users. Medical History Atrial fibrillation Chest pain Hypertension Numbness and tingling in both hands Tachycardia Surgical History History of cardiac cath Social History Smoking Status: Current some day smoker tobacco type: smokeless tobacco alcohol intake: current alcohol intake frequency: a few times a week substance use type: denies use current occupational status: employed Travel in the last 8 weeks: None household members: spouse and none housing: house caffeine: Yes Have you lived/traveled outside [place] in past 30 days?: No Contact w/someone who lives/traveled outside [place] past 30 days?: No Exposure to someone with infectious disease in past 14 days?: No Do you have a fever (greater than 100.4 F or 38 C)?: No Have you tested positive for COVID-19: No Exposed to someone with COVID-19 in past 14 days?: No Do you have a sore throat?: No Do you have a cough?: No Do you have any weakness?: No Do you have any diarrhea?: No Are you experiencing any unusual bleeding?: No Do you have any muscle aches/pain?: No Do you have any abdominal pain?: No Are you experiencing loss of taste or smell?: No ROS Obtained: Yes All systems reviewed & no additional complaints except as documented Constitutional Constitutional: Denies chills and Denies fever(s) Eyes Eyes: Denies eye discharge ENT Ears, Nose, Mouth, and Throat: Denies dizziness, Denies otalgia and Denies sore throat Cardiovascular Cardiovascular: Denies chest pain Respiratory Respiratory: Denies shortness of breath, Denies chest congestion, Denies cough, Denies stridor and Denies wheezing Gastrointestinal Gastrointestingal: Denies nausea or vomiting Musculoskeletal Musculoskeletal: Reports as per HPI Integumentary/Breasts Skin/Breast: Denies rash Neurologic Neurologic: Denies dizziness and Denies paresthesias Allergic/Immunologic Allergic/Immunologic: Denies wheezing Physical Exam General General appearance: alert and in no apparent distress Head Head exam: atraumatic, normocephalic and normal inspection Eye Eye exam: Present normal appearance, PERRL and EOMI ENT ENT exam: Present normal exam, normal oropharynx, mucous membranes moist, TM's normal bilaterally and normal external ear exam Neck Neck exam: Present normal inspection, full ROM and trachea midline; Absent meningismus or lymphadenopathy Chest Chest inspection: Present normal inspection and symmetric chest wall rise; Absent tenderness Respiratory Respiratory exam: Present normal lung sounds bilaterally; Absent respiratory distress Cardiovascular Cardiovascular exam: Present regular rate and normal rhythm; Absent JVD Abdominal Exam Abdominal exam: Present soft and normal bowel sounds; Absent distention, tenderness or guarding Extremities Exam Extremities exam: Present normal inspection, full ROM and normal capillary refill; Absent calf tenderness Back Exam Back exam: Present normal inspection; Absent tenderness Neurological Exam Neurological exam: Present alert and oriented X3 Psychiatric Psychiatric exam: Present normal affect and normal mood Skin Skin exam: Present warm, dry, intact and normal color Lymphatic Lymphatic Findings: no adenopathy Medical Decision Making Medical Records Medical records reviewed: No I reviewed the patient's medical records. Screening: Per USPSTF and CDC recommendations, given the prevalence of disease in our region, it is our hospital?s policy to screen for HIV and viral Hepatitis for all patients aged 18 and over and those with ongoing risk factors. Dimas Inquiry Pt receiving controlled substance: No
[2024-09-22 10:39] VITALS: BP 143/93; PULSE 91; RESP 17; TEMP 37; O2SAT 98; BMI 33.3
[2024-09-22] MEDS: KETOROLAC 60MG/2ML VIAL 60 MG IM (10:43)
[2024-09-22] MEDS: DEXAMETHASONE 4MG/ML 1ML VIAL 8 MG IM (10:44)
[2024-09-22 10:59] VITALS: BP 143/93; PULSE 91; RESP 17; TEMP 37
== END 2024-09-22 11:00 | disposition home or self-care (01) ==
PROVIDERS: Emergency Provider Nurse Practitioner Family
DX: M10.9 Gout, unspecified (principal)
CPT/HCPCS: 99213; G0381; J1100; J1885

== ENCOUNTER 2024-10-08 13:47 | Emergency (ER) | payer OTHER, SELFPAY ==
[2024-10-08] VITALS (18 sets, daily range): BP systolic 102–165; BP diastolic 57–112; PULSE 75–100; RESP 9–20; TEMP 36.7–36.8; O2SAT 96–100; BMI 34.7
--- NOTE | 2024-10-08 13:47 | PC.NURSE ---
Dr Tran at bedside
--- NOTE | 2024-10-08 13:50 | XR_ITS ---
FINAL REPORT CLINICAL HISTORY: pain, obvious deformity/injury COMPARISON: None FINDINGS: Two views of the right knee were obtained. There is no acute fracture or dislocation. The joint spaces are well preserved. There is no acute soft tissue abnormality. IMPRESSION: No acute abnormality identified. Reviewed, Interpreted and Dictated by Nimisha Arriaza MD Transcribed by Flora Pandey Authenticated and [facility]
--- NOTE | 2024-10-08 13:50 | XR_ITS ---
FINAL REPORT CLINICAL HISTORY: pain, obvious deformity/injury COMPARISON: None FINDINGS: Two views of the right foot were obtained. Please see the ankle report in reference to the tibiotalar dislocation and fracture. The remainder of the foot is without acute osseous abnormality. There is no soft tissue abnormality. IMPRESSION: Tibiotalar dislocation and fracture. Please see ankle report. Reviewed, Interpreted and Dictated by Nimisha Arriaza MD Transcribed by Flora Pandey Authenticated and . [facility]
--- NOTE | 2024-10-08 13:50 | XR_ITS ---
FINAL REPORT CLINICAL HISTORY: pain, obvious deformity/injury FINDINGS: AP and lateral views of the right tibia and fibula were obtained. There is no prior exam for comparison. The proximal half of the tibia and fibula are without acute abnormality. There are displaced fractures of the tibia and fibula with tibiotalar dislocation noted. Please see ankle report for further details. The soft tissues are normal. IMPRESSION: Fractures and dislocation as above, noted in further detail on the ankle report. Reviewed, Interpreted and Dictated by Nimisha Arriaza MD Transcribed by lFora Pandey Authenticated and [facility]
--- NOTE | 2024-10-08 13:50 | XR_ITS ---
FINAL REPORT CLINICAL HISTORY: pain, obvious deformity/injury COMPARISON: None FINDINGS: Two views of the right ankle were obtained. There is fracture dislocation of the ankle. The distal fibular fracture is angulated and displaced. There is lateral angulation and anterior displacement of the dominant fragments. The talus is laterally and anteriorly dislocated from the distal tibia. Fractures are noted of the medial and lateral malleolus. Diffuse soft tissue edema is present. IMPRESSION: Fractures and dislocation of the ankle. Reviewed, Interpreted and Dictated by Nimisha Arriaza MD Transcribed by Flora Pandey Authenticated and [facility]
--- NOTE | 2024-10-08 13:51 | XR_ITS ---
FINAL REPORT CLINICAL HISTORY: POST REDUCTION COMPARISON: 1 hour prior FINDINGS: Two views of the right ankle were obtained. Plaster cast obscures much of the detail. There has been interval improvement of alignment of the fractures of the distal tibia and fibula. The tibiotalar joint is now relocated. IMPRESSION: Interval improvement of fracture alignment. Relocated tibiotalar joint. Reviewed, Interpreted and Dictated by Nimisha Arriaza MD Transcribed by Flora Pandey Authenticated and [facility]
--- NOTE | 2024-10-08 13:52 | ED_ITS ---
Discharge Plan Disposition Patient Disposition: Xfer Short-Term Hosp Prescriptions Prescriptions: No Action bisoprolol fumarate 10 mg tablet 10 mg PO DAILY Qty: 90 3RF Referrals Follow up/Referrals: Provider,Referral, MD [Primary Care Provider] - See instructions Clinical Impressions Clinical Impression: Fracture dislocation of right ankle joint Instructions Patient Instructions: DI for Moderate Sedation Print Language Print Language: Swedish Discharge ED Provider: Judith Tran General Adult HPI <Judith Tran DO - Last Filed: 10/08/24 15:49> General Chief complaint: Extremity Injury, Lower Stated complaint: RIGHT ANKLE PAIN Time Seen by Provider: 10/08/24 13:50 History of Present Illness HPI narrative: This patient is a 44-year-old male with a history of hypertension, irregular heart rate on bisoprolol, obesity, tobacco use, and GERD presenting to the emergency department for evaluation concern for right ankle injury. Patient was working on a bobcat, when he jumped down, landing on his right ankle wrong after he got caught in a piece of the machinery. He did not hit his head or lose consciousness but notes his foot was twisted when he planted on the ground. Immediate pain felt. Obvious deformity noted by patient and also by EMS who brings the patient in. No other injuries or concerns noted. He does not take blood thinners or aspirin. He was well prior to this. Related Data Previous Rx's ?Medication ?Instructions ?Recorded bisoprolol fumarate 10 mg tablet 10 mg PO DAILY #90 tabs 07/23/24 Allergies Allergy/AdvReac Type Severity Reaction Status Date / Time Penicillins Allergy Verified 07/23/24 08:29 PFSH <Judith Tran DO - Last Filed: 10/08/24 15:49> [facility] Disclaimer: The information contained in this section may have been updated after the patient was seen, as this information can be updated by other users. Medical History Atrial fibrillation Chest pain Hypertension Numbness and tingling in both hands Tachycardia Surgical History History of cardiac cath Social History Smoking Status: Current every day smoker tobacco type: smokeless tobacco alcohol intake: current alcohol intake frequency: a few times a week substance use type: denies use current occupational status: employed Travel in the last 8 weeks: None household members: spouse and none housing: house caffeine: Yes Have you lived/traveled outside [place] in past 30 days?: No Contact w/someone who lives/traveled outside US past 30 days?: No Exposure to someone with infectious disease in past 14 days?: No Do you have a fever (greater than 100.4 F or 38 C)?: No Have you tested positive for COVID-19: No Exposed to someone with COVID-19 in past 14 days?: No Do you have a sore throat?: No Do you have a cough?: No Do you have any weakness?: No Do you have any diarrhea?: No Are you experiencing any unusual bleeding?: No Do you have any muscle aches/pain?: No Do you have any abdominal pain?: No Are you experiencing loss of taste or smell?: No Other Medical History Have you received the Flu Vaccine for this season: No Have you received the Pneumonia Vaccine: No <Judith Tran DO - Last Filed: 10/08/24 15:49> ROS Obtained: Yes All systems reviewed & no additional complaints except as documented Physical Exam <Judith Tran DO - Last Filed: 10/08/24 15:49> General General appearance: alert and in no apparent distress Head Head exam: atraumatic and normocephalic Eye Eye exam: Present normal appearance, PERRL and EOMI ENT ENT exam: Present normal exam, normal oropharynx, mucous membranes moist and normal external ear exam Neck Neck exam: Present normal inspection, full ROM and trachea midline; Absent tenderness Chest Chest inspection: Present normal inspection and symmetric chest wall rise; Absent tenderness Respiratory Respiratory exam: Present normal lung sounds bilaterally; Absent respiratory distress, wheezes, stridor or accessory muscle use Cardiovascular Cardiovascular exam: Present regular rate and normal rhythm Abdominal Exam Abdominal exam: Present soft; Absent distention, tenderness or guarding Extremities Exam Extremities exam: Present tenderness, normal capillary refill and other (Obvious deformity of the right ankle with significant displacement of his right foot laterally, tenting over his medial malleolus which is protruding. No open wound. Neurovascularly intact distally with good palpable pulses.); Absent edema Back Exam Back exam: Present normal inspection and full ROM; Absent tenderness Neurological Exam Neurological exam: Present alert, oriented X3 and CN II-XII intact; Absent motor sensory deficit Psychiatric Psychiatric exam: Present normal affect and normal mood Skin Skin exam: Present warm and dry Medical Decision Making <Judith Tran, DO - Last Filed: 10/08/24 15:49> Medical Records Medical records reviewed: Yes I reviewed the patient's medical records. Screening: Per USPSTF and CDC recommendations, given the prevalence of disease in our region, it is our hospital?s policy to screen for HIV and viral Hepatitis for all patients aged 18 and over and those with ongoing risk factors. [place] Inquiry Pt receiving controlled substance: No Vital Signs: 10/08/24 13:47 Temperature 98.3 F Temperature Source Oral Pulse Rate [Right] 93 H Respiratory Rate 20 Blood Pressure [Right Arm] 141/78 H Blood Pressure Mean [Right Arm] 99 Blood Pressure Source [Right Arm] Automatic Cuff 02 Sat by Pulse Oximetry 98 Oxygen Delivery Method Room Air Lab Data Lab results reviewed: Yes I reviewed the patient's lab results. Orders (Tests/Meds): ED MEDICATIONS Generic Name Dose Route Start Last Admin Trade Name Freq PRN Reason Stop Dose Admin Ketamine HCl 50 mg 10/08/24 14:51 Ketamine 50mg/1ml Syringe IV 10/08/24 14:52 ONCE ONE Discontinued Medications Generic Name Dose Route Start Last Admin Trade Name Freq PRN Reason Stop Dose Admin Acetaminophen 1,000 mg 10/08/24 13:50 Acetaminophen 1,000mg/100ml Vial IV 10/08/24 13:51 ONCE ONE Hydromorphone HCl 1 mg 10/08/24 13:50 10/08/24 14:43 Hydromorphone 2mg/Ml Syringe IV 10/08/24 13:51 1 mg ONCE ONE Administration Ketamine HCl 80 mg 10/08/24 14:43 10/08/24 14:48 Ketamine 50mg/1ml Syringe IV 10/08/24 14:44 80 mg ONCE ONE Administration Ketorolac Tromethamine 15 mg 10/08/24 13:50 10/08/24 14:06 Ketorolac 30mg/Ml Vial IV 10/08/24 13:51 15 mg ONCE ONE Administration Ondansetron HCl 4 mg 10/08/24 13:50 10/08/24 14:06 Ondansetron 4mg/2ml Vial IV 10/08/24 13:51 4 mg ONCE ONE Administration ORDERS Category Date Time Status Tibia/fibula XR right 2 views [XR tibia fibula RT 2V] Exams 10/08/24 13:50 Completed Stat XR ankle RT 2V Stat Exams 10/08/24 13:50 Completed XR ankle RT 2V Stat Exams 10/08/24 13:51 Taken XR foot RT 2V Stat Exams 10/08/24 13:50 Completed XR knee RT 2V Stat Exams 10/08/24 13:50 Completed Medical Decision Narrative: In summary, this patient is a 44-year-old male presenting to the Emergency Department for evaluation of right ankle pain and deformity. Differential diagnoses considered include but are not limited to fracture, contusion, dislocation, neurovascular injury. Ruling out the most morbid conditions drove assessment. It should be noted patient's history includes hypertension, obesity, GERD, tobacco use which may or may not be at goal therapy. This complicates all aspects of care by increasing patient's risk for morbidity. I reviewed patient's past medical records and noted previous cardiology evaluations for diastolic dysfunction, tachycardia, hypertension. On exam, the patient is sitting upright in no acute distress. He has obvious deformity of the right ankle with no open wound. He is neurovascularly intact. He has no head injury or other concern, he did not hit his head or lose consciousness, he does not take blood thinners. He was well prior to this. Workup included of the right knee, tib-fib, ankle, and foot. He was given IV Dilaudid, Zofran, Toradol, acetaminophen for symptomatic improvement. Patient had x-rays performed, and then had significant diminished pulses and delayed cap refill. He initially was neurovascularly intact, but then I had significant concerns for vascular compromise. I independently interpreted stray prior to the radiologist read and noted fracture dislocation of the right ankle with complete tibiotalar dislocation. Please see their read for final interpretation. Given severe deformity, vascular compromise, and need for dislocation/reduction and splinting, patient consented to procedural sedation after informed risk vs benefit was explained. This was performed emergently given concern for vascular compromise. He tolerated well with no complications. He returned to his preprocedure baseline. I performed procedural sedation, Dr. Preston performed reduction and splinting. Patient had great cap refill and a warm well-perfused foot after reduction and splinting. I independently interpreted postreduction film and noted improved alignment of the ankle fracture/dislocation. Ultimately, we do not have orthopedics on today and I feel the patient would benefit from emergent orthopedic evaluation given severe unstable ankle deformity. I called and had an interactive discussion with Dr. Gonzáles at [facility] ED. Patient was accepted for transfer, EMS transport arranged. He was transferred in stable condition with a neurovascularly intact right lower extremity. <Kanu Preston MD - Last Filed: 10/08/24 15:54> Vital Signs: 10/08/24 13:47 Temperature 98.3 F Temperature Source Oral Pulse Rate [Right] 93 H Respiratory Rate 20 Blood Pressure [Right Arm] 141/78 H Blood Pressure Mean [Right Arm] 99 Blood Pressure Source [Right Arm] Automatic Cuff 02 Sat by Pulse Oximetry 98 Oxygen Delivery Method Room Air Orders (Tests/Meds): ED MEDICATIONS Generic Name Dose Route Start Last Admin Trade Name Freq PRN Reason Stop Dose Admin Ketamine HCl 50 mg 10/08/24 14:51 Ketamine 50mg/1ml Syringe IV 10/08/24 14:52 ONCE ONE Discontinued Medications Generic Name Dose Route Start Last Admin Trade Name Freq PRN Reason Stop Dose Admin Acetaminophen 1,000 mg 10/08/24 13:50 Acetaminophen 1,000mg/100ml Vial IV 10/08/24 13:51 ONCE ONE Hydromorphone HCl 1 mg 10/08/24 13:50 10/08/24 14:43 Hydromorphone 2mg/Ml Syringe IV 10/08/24 13:51 1 mg ONCE ONE Administration Ketamine HCl 80 mg 10/08/24 14:43 10/08/24 14:48 Ketamine 50mg/1ml Syringe IV 10/08/24 14:44 80 mg ONCE ONE Administration Ketorolac Tromethamine 15 mg 10/08/24 13:50 10/08/24 14:06 Ketorolac 30mg/Ml Vial IV 10/08/24 13:51 15 mg ONCE ONE Administration Ondansetron HCl 4 mg 10/08/24 13:50 10/08/24 14:06 Ondansetron 4mg/2ml Vial IV 10/08/24 13:51 4 mg ONCE ONE Administration ORDERS Category Date Time Status Tibia/fibula XR right 2 views [XR tibia fibula RT 2V] Exams 10/08/24 13:50 Completed Stat XR ankle RT 2V Stat Exams 10/08/24 13:50 Completed XR ankle RT 2V Stat Exams 10/08/24 13:51 Taken XR foot RT 2V Stat Exams 10/08/24 13:50 Completed XR knee RT 2V Stat Exams 10/08/24 13:50 Completed Medical Decision Narrative: In summary, this patient is a 44-year-old male presenting to the Emergency Department for evaluation of right ankle pain and deformity. Differential diagnoses considered include but are not limited to fracture, contusion, dislocation, neurovascular injury. Ruling out the most morbid conditions drove assessment. It should be noted patient's history includes hypertension, obesity, GERD, tobacco use which may or may not be at goal therapy. This complicates all aspects of care by increasing patient's risk for morbidity. I reviewed patient's past medical records and noted previous cardiology evaluations for diastolic dysfunction, tachycardia, hypertension. On exam, the patient is sitting upright in no acute distress. He has obvious deformity of the right ankle with no open wound. He is neurovascularly intact. He has no head injury or other concern, he did not hit his head or lose consciousness, he does not take blood thinners. He was well prior to this. Workup included of the right knee, tib-fib, ankle, and foot. He was given IV Dilaudid, Zofran, Toradol, acetaminophen for symptomatic improvement. Patient had x-rays performed, and then had significant diminished pulses and delayed cap refill. He initially was neurovascularly intact, but then I had significant concerns for vascular compromise. I independently interpreted stray prior to the radiologist read and noted fracture dislocation of the right ankle with complete tibiotalar dislocation. Please see their read for final interpretation. Given severe deformity, vascular compromise, and need for dislocation/reduction and splinting, patient consented to procedural sedation after informed risk vs benefit was explained. This was performed emergently given concern for vascular compromise. He tolerated well with no complications. He returned to his preprocedure baseline. I performed procedural sedation, Dr. Preston performed reduction and splinting. Patient had great cap refill and a warm well-perfused foot after reduction and splinting. I independently interpreted postreduction film and noted improved alignment of the ankle fracture/dislocation. Ultimately, we do not have orthopedics on today and I feel the patient would benefit from emergent orthopedic evaluation given severe unstable ankle deformity. I called and had an interactive discussion with Dr. Gonzáles at [facility]. Patient was accepted for transfer, EMS transport arranged. He was transferred in stable condition with a neurovascularly intact right lower extremity. Mohan: I arrived on shift at 1500 and patient was in moderate to severe distress. Dr. Tran was performing sedation for reduction and splinting, I performed reduction and splinting. On my neurovascular exam, patient had 0 capillary refill, mottling of the foot, no palpable pulse and skin tenting medially over malleolus. Sedation was initiated and after ketamine, patient still unable to relax, propofol was added. After numerous doses of propofol and ketamine (see previous providers note) able to be reduced and splinted. After reduction, palpable dorsalis pedis pulse and capillary refill. After wrapping, plaster application and splinting, patient still has good capillary refill in all 5 digits. Previous physician set up transfer to . Pain was controlled here at [facility] until transfer. Procedures <Judith Tran DO - Last Filed: 10/08/24 15:49> Risk/Benefits of Procedure(s) Were Explained: Yes Procedural Sedation Presedation Evaluation: Alert, oriented, no respiratory distress. No history of difficult sedation/intubation. No significant cardiopulmonary history except for irregular heart rate for which he takes bisoprolol. He is a smoker, no history of reported COPD or oxygen requirement. A heart and lung assessment was performed on this patient at: 13:52 Mallampati Score:: Class II Indication: fracture/dislocation reduction ASA Class: II Preparation: manager cardiac cath applied, pulse oximeter, capnometry used, supplemental O2 applied, reversal agents at bedside, suction/airway equipment at bedside and IV secured Ketamine: IV Patient Tolerated Procedure: well and no complications Complications: none <Kanu Preston MD - Last Filed: 10/08/24 15:54> Orthopedic Fracture Reduction Fracture #1: Time Out Performed: Yes Side: right Fracture Reduction Location: tibia and fibula Analgesia: procedural sedation (see sedation note by MD Marc) Technique: direct manipulation and traction/counter-traction Post Reduction X-rays Demonstrate: acceptable reduction Post-reduction neuro exam: intact Post-reduction vascular exam: intact Splint Applied: Yes Patient Tolerated Procedure: well Additional Comments: pre-procedure vascular exam: no palpable pulse, mottled foot Orthopedic Joint Reduction Joint #1: Time Out Performed: Yes Side: right Joint Reduction Location: other (ankle) Analgesia: procedural sedation Technique used: traction/counter-traction Post-reduction neuro exam: intact Post-reduction vascular: intact Post Reduction X-Ray Obtained: Yes Post Reduction X-Ray Results: reduced Splint Applied: Yes Patient Tolerated Procedure: well Additional Comments: pre-procedural vascular exam: no palpable pulse, mottled foot Orthopedic Splinting/Casting Injury #1: Side: right Lower Extremity Injury Location: ankle Lower Extremity Immobilizer: posterior splint (with stirrups) Additional Comments: pre-procedural vascular exam: no palpable pulse, mottled foot Post Cast/Splinting Neuro Status: intact Post Cast/Splinting Vasc Status: intact Critical Care <Kanu Preston MD - Last Filed: 10/08/24 15:54> Critical Care Time Critical Care Time: Yes (vascular, loss of pulses and capillary refill vascular compromise ) Attestation: On 10/08/24, the high probability of a clinically significant, sudden or life threatening deterioration of the following system(s) required my full and direct attention, intervention and personal management. The time I documented below is in addition to time spent performing reported procedures but includes the following listed in this critical care notation. Total Time Total Critical Care Time: 35
--- NOTE | 2024-10-08 14:05 | PC.NURSE ---
Pt's and mother brought back to room 6
[2024-10-08] MEDS: KETOROLAC 30MG/ML VIAL 15 MG IV (14:06)
[2024-10-08] MEDS: ONDANSETRON 4MG/2ML VIAL 4 MG IV (14:06)
--- NOTE | 2024-10-08 14:11 | PC.NURSE ---
XRay at bedside
[2024-10-08] MEDS: HYDROMORPHONE 2MG/ML SYRINGE 1 MG IV (14:43)
[2024-10-08] MEDS: KETAMINE 50MG/1ML SYRINGE 80 MG IV (14:48)
[2024-10-08] MEDS: KETAMINE 50MG/1ML SYRINGE 50 MG IV (14:51)
[2024-10-08] MEDS: PROPOFOL 10MG/ML 20ML VIAL 140 MG IV (14:55)
[2024-10-08] MEDS: KETAMINE 50MG/1ML SYRINGE 20 MG IV (15:02)
--- NOTE | 2024-10-08 15:10 | PC.NURSE ---
xray at BS for post reduction
--- NOTE | 2024-10-08 15:18 | PC.NURSE ---
Dr Tran speaking with [facility] MDs
--- NOTE | 2024-10-08 15:19 | PC.NURSE ---
CALLED [facility] PER FOR POSS TRANSFER FOR ANKLE DISLOCATION FRACTURE. [facility] STATED THAT THEY WOULD GIVE US A CALL BACK.
--- NOTE | 2024-10-08 15:39 | PC.NURSE ---
Assisted pt in setting up in bed, no other needs at this time.
--- NOTE | 2024-10-08 16:07 | PC.NURSE ---
ROUNDED ON THE PT. THE PT VOICES THAT HE DOES NOT NEED ANYTHING AT THIS TIME. PT WAS GIVEN A BOTTLE OF WATER. CALL LIGHT IS WITHIN REACH OF THE PT. GIRLFRIEND IS PRESENT AT THE BEDSIDE.
[2024-10-08] MEDS: ACETAMINOPHEN 1,000MG/100ML VIAL 1000 MG IV (16:10)
[2024-10-08] MEDS: SODIUM CHLORIDE 0.9% 25ML BAG 25 ML IV (16:30)
[2024-10-08] MEDS: PROMETHAZINE HCL 25MG/ML 1ML VIAL 25 MG IV (16:30)
--- NOTE | 2024-10-08 16:31 | PC.NURSE ---
WHEN PT WAS LOADED ONTO EMS STRETCHER, HE BEGAN TO BECOME VERY NAUSEATED AND DR KENT ORDERED PHENERGAN
[2024-10-08] MEDS: NICOTINE 21MG/24HR PATCH 21 MG TD (16:42)
== END 2024-10-08 16:44 | disposition short-term general hospital (02) ==
PROVIDERS: Emergency Provider Emergency Medicine
DX: S82.891A Other fracture of right lower leg, initial encounter for closed fracture (principal); M25.571 Pain in right ankle and joints of right foot; F17.290 Nicotine dependence, other tobacco product, uncomplicated; W17.89XA Other fall from one level to another, initial encounter; Y93.89 Activity, other specified; Y92.9 Unspecified place or not applicable
CPT/HCPCS: 27842; 73560; 73590; 73600; 73620; 96374; 96375; 99152; 99291; J0131; J1171; J1885; J2405; J2550

== ENCOUNTER 2025-04-18 09:49 | Outpatient (CLI) | payer OTHER, SELFPAY ==
--- OUTSIDE RECORDS SUMMARY | 2025-04-21 10:50 | XMS_ITS | Clinical Summary ---
Author Organization [facility] Address [address] [place] [place] [address] Care Team Providers Care [employer] Name Role Phone Pcp, No Primary Care Provider Unavailabl e Allergies Active Allergy Reactions Criticality Noted Date Comments Penicillins Rash Low 10/08/2024 Medications bisoprolol (Zebeta) 10 MG tablet Take 1 tablet (10 mg) by mouth every morning. 10/06/19 25 Active ondansetron ODT (Zofran-ODT) 4 MG disintegrating tablet Take 1 tablet (4 mg) by mouth every 8 hours as needed for nausea or vomiting. 20 tablet 10/17/19 25 Active Additional Information Patient not taking.Reported on 01/30/2025 methocarbamol (Robaxin) 500 MG tablet Take 1 tablet (500 mg) by mouth 4 (four) times a day. 50 tablet 10/17/19 25 Active Additional Information Patient not taking.Reported on 01/30/2025 Multiple Vitamin (multivitamin) capsule Take 1 capsule by mouth daily. Active aspirin 81 MG EC tablet Take 1 tablet (81 mg) by mouth every morning. Active ibuprofen 600 MG tablet Take 1 tablet (600 mg) by mouth every 6 hours as needed for moderate pain for up to 40 doses. 40 tablet 10/23/19 25 Active Additional Information Patient not taking.Reported on 01/30/2025 acetaminophen (Tylenol) 500 MG tablet Take 1 tablet (500 mg) by mouth every 6 hours as needed for pain. 100 tablet 10/23/19 25 Active Additional Information Patient not taking.Reported on 01/30/2025 aspirin (Ecotrin) 325 MG EC tablet Take 1 tablet (325 mg) by mouth daily. 30 tablet 10/23/19 Active Additional Information Patient not taking.Reported on 01/30/2025 methocarbamol (Robaxin) 500 MG tablet Take 1 tablet (500 mg) by mouth 4 (four) times a day. 30 tablet 10/23/19 Active Additional Information Patient not taking.Reported on 01/30/2025 naloxone (Narcan) 4 mg/0.1 mL nasal spray 1. Give 1 spray in nostril for no/slow breathing or cannot wake after opioid use 2. Call 911 3. Repeat in other nostril if symptoms continue 1 each 10/23/19 Active Additional Information Patient not taking.Reported on 01/30/2025 senna-docusate sodium (Senokot-S) 8.6-50 MG tablet Take 1 tablet by mouth 2 (two) times a day. 28 tablet 10/23/19 Active Additional Information Patient not taking.Reported on 01/30/2025 Active Problems Problem Noted Date Diagnosed Date Closed fracture of right ankle 10/17/2024 Encounters Date Type Department Care Team Description 01/30/2025 2:20 PM EDT Office Visit [facility] [address] [place] [address] Rex Terrell MD Closed fracture of right ankle, initial encounter (Primary Dx) 01/30/2025 2:08 PM EDT - 01/30/2025 11:59 PM EDT Hospital Encounter [facility] Radiology [address] [place] [address] Closed fracture of right ankle, initial encounter Discharge Disposition: Home or Self Care 01/30/2025 Travel from Last 3 Months Family History Medical History Relation Name Comments Anesthesia problems Neg Hx Malig Hyperthermia Neg Hx Social History Tobacco Use Types Packs/Day Years Used Date Smoking Tobacco: Every Day Cigarettes 1 10.7 Started: 2014 Passive Smoke Exposure: Current Smokeless Tobacco: Current Snuff Comments:Pt. Did quit for 4 years, then started smoking again. Alcohol Use Standard Drinks/Week Comments Yes 0 (1 standard drink = 0.6 oz pur e alcohol) social PHQ-2 Answer Date Recorded Patient Health Questionnaire-2 Score 6 12/12/2024 PHQ-9 Answer Date Recorded Patient Health Questionnaire-9 Score 6 12/12/2024 Sex and Gender Information Value Date Recorded Sex Assigned at Male 10/08/2024 5:56 PM EST Legal Sex Male 9:15 PM EDT Gender Identity Male 10/22/2024 1:55 PM EST Sexual Orientation Not on file Last Filed Vital Signs Vital Sign Reading Time Taken Comments Blood Pressure 140/88 01/30/2025 1:59 PM EDT Pulse 72 01/30/2025 1:59 PM EDT Temperature 36.5 C (97.7 F) 01/30/2025 1:59 PM EDT Respiratory Rate 12 10/22/2024 9:30 PM EST Oxygen Saturation 97% 01/30/2025 1:59 PM EDT Inhaled Oxygen Concentration - - Weight 125 kg (275 lb) 01/30/2025 1:59 PM EDT Height 188 cm (6' 2 ) 01/30/2025 1:59 PM EDT Body Mass Index 35.31 01/30/2025 1:59 PM EDT Plan of Treatment Upcoming Encounters Date Type Department Care Team (Late st Contact Info) Description 05/01/2025 10:50 AM EDT Office Visit [facility] [address] [place] [address] Rex Terrell MD [address] [place] [address] Health Maintenance Due Date Last Done Comments [facility]-HIV Screening 1978 [facility]-Hepatitis C Screening 1978 [facility]-Infant/Child/Adol SDOH Screenings 1978 [facility]- SDOH Screenings 1996 [facility]-Adult SDOH Screenings 1996 [facility]-DTaP,Tdap,and Td Vaccines (1 - Tdap) 1997 [facility]-Pneumococcal Vaccine: Pediatrics (0 to 5 Years) and At-Risk Patients (6 to 49 Years) (1 of 2 - PCV) 1997 [facility]-Hepatitis B Vaccines (3 of 3 - 19+ 3-dose series) 07/13/2001 02/08/2001, 01/10/2001 CT Colonography 2023 Colonoscopy 2023 FIT-DNA 2023 FIT 2023 FOBT 2023 Sigmoidoscopy 2023 [facility]-Colorectal Cancer Screening 2023 [id number] Vaccine ( season) 2024 [facility]-Influenza Vaccine (#1) 2025 [facility]-Depression Screening 12/12/2025 12/12/2024, 11/19 [facility]-Zoster Vaccines (1 of 2) 2028 [facility]-Hepatitis A Vaccines Aged Out 02/08/2001 No longer eligible based on patient's age to complete this topic [facility]-Obesity Intervention Completed 025, 12/12/2024, 11/07/2024, Additional history exists HPV Vaccines Aged Out No longer eligi ble based on patient's age to complete this topic [facility]-HIB Vaccines Aged Out No longer e ligible based on patient's age to complete this topic [facility]-IPV Vaccines Aged Out No longer e ligible based on patient's age to complete this topic [facility]-Rotavirus Vaccines Aged Out No lo nger eligible based on patient's age to complete this topic Medical Devices Implanted Type Area Software Quality Manager Device Identifier Shelf Expiration Date Model / Serial / Lot Screw 3.5x18mm Ss Monoaxlocking Glob[employer] Med - [id number] Implanted:Qty: 2 on 10/22/2024 by Rex Terrell MD at [facility] Screw Right: Ankle [id number] / / Screw 3.5x16mm Ss Non-Locking Globus Med - [id number] Implanted:Qty: 4 on 10/22/2024 by Rex Terrell MD at [facility] Screw Right: Ankle [employer] [place] [id number] / / Kit Invisiknot Ankle Fracture - [id number] Implanted:Qty: 1 on 10/22/2024 by Rex Terrell MD at [facility] Right: Ankle [employer]-[id number] 03/31/2029 [id number] / / Screw Headless Comprs 4.0x48mm Long Ti Darlin Md - [id number] Implanted:Qty: 1 on 10/22/2024 by Rex Terrell MD at [facility] Right: Ankle [employer] M[employer]-[id number] 10/22/2025 [id number] / / Procedures Procedure Name Priority Date/Time Associated Diagnosis Comments XR ANKLE RIGHT 3+ VIEWS Routine 01/30/2025 2:18 PM EDT Closed fracture of right ankle, initial encounter from Last 3 Months Results * XR Ankle Right 3+ Views (01/30/2025 2:18 PM EDT) Anatomical Region Laterality Modality Lower Extremities, Ankle Right Digital Radiography Impressions 01/30/2025 2:20 PM EDT No evidence of hardware complication. Healing distal tibial and fibular fractures. CRITICAL RESULT: No. COMMUNICATION: Per this written report. Drafted by Nancy Wiley MD on 01/30/2025 2:18 PM Final report signed by Nancy Wiley MD on 01/30/2025 2:20 PM Narrative 01/30/2025 2:20 PM EDT CLINICAL INDICATION: pain TECHNIQUE: XR ANKLE RIGHT 3+ VIEWS COMPARISON: Radiographs from 12/12/2024 FINDINGS: Plate and screw fixation of the distal fibula. Screw fixation of the medial malleolus. Tightrope fixation across the distal tib-fib syndesmosis. No evidence of hardware loosening or failure. Similar alignment of the fracture fragments with evidence of healing. Persistent soft tissue swelling of the ankle. Ankle mortise appears grossly intact. Calcaneal enthesopathy. Procedure Note Nancy Wiley MD - 01/30/2025 CLINICAL INDICATION: pain TECHNIQUE: XR ANKLE RIGHT 3+ VIEWS COMPARISON: Radiographs from 12/12/2024 FINDINGS: Plate and screw fixation of the distal fibula. Screw fixation of themedial malleolus. Tightrope fixation across the distal tib-fibsyndesmosis. No evidence of hardware loosening or failure. Similaralignment of the fracture fragments with evidence of healing. Persistentsoft tissue swelling of the ankle. Ankle mortise appears grossly intact.Calcaneal enthesopathy. IMPRESSION: No evidence of hardware complication. Healing distal tibial and fibularfractures. CRITICAL RESULT: No. COMMUNICATION: Per this written report. Drafted by Nancy Wiley MD on 01/30/2025 2:18 PM Final report signed by Nancy Wiley MD on 01/30/2025 2:20 PM us Maryam SHEARER IMG XR PROCEDURES Final Resu lt from Last 3 Months Care Teams [employer] Relationship Specialty Start Date End Date Pcp, No [address] [place] [address] PCP - General Family Medicine 10/08/24
== END 2025-04-18 23:59 ==
LOC: LAB.DROPOF 04-21 10:08
PROVIDERS: PCP Nurse Practitioner; Visit Provider Nurse Practitioner
DX: T14.8XXA Other injury of unspecified body region, initial encounter (principal)
CPT/HCPCS: 87070; 87205